=== PATIENT | female | born 1990 | race Caucasian/White ===

== ENCOUNTER 2018-04-09 17:18 | Observation (INO) | payer BC ==
[2018-04-09] MEDS ORDERED: Sodium Chloride 0.9% 10 ML Syringe FLUSH PRN (17:49)
[2018-04-09] MEDS ORDERED: Ondansetron 4 MG/2 ML SDV IVPUSH ONE (17:49)
[2018-04-09] MEDS ORDERED: Morphine 2 MG/ML Syringe IVPUSH ONE (17:49)
--- NOTE | 2018-04-09 17:55 | EDM.PDOC ---
ED HPI GENERAL MEDICAL PROBLEM - General Stated Complaint: PELVIC PAIN Time Seen by Provider: 04/09/18 17:40 Source of Information: Reports: Patient History Limitations: Reports: No Limitations - History of Present Illness INITIAL COMMENTS - FREE TEXT/NARRATIVE: This is a 27yo F here for extreme pelvic pain. Patient states the pain started Saturday night and she did go to work yesterday and it had improved but now has returned. It is a 10/10 sharp stabbing pain. Patient states the last time she had this was 9 years ago. Patient denies any vaginal discharge or bleeding, no blood in BM or diarrhea or constipation and recent BM yesterday. No recent constipation or diarrhea. - Related Data Allergies Allergy/AdvReac Type Severity Reaction Status Date / Time Sulfa Allergy Other Uncoded 04/09/18 17:54 ED ROS GENERAL - Review of Systems Review Of Systems: ROS reveals no pertinent complaints other than HPI. ED EXAM, RENAL/ - Physical Exam Exam: See Below Exam Limited By: No Limitations General Appearance: Alert, WD/WN, Severe Distress Eye Exam: Bilateral Eye: EOMI, PERRL Ears: Normal External Exam Nose: Normal Inspection Throat/Mouth: Normal Inspection Head: Atraumatic, Normocephalic Neck: Normal Inspection Respiratory/Chest: No Respiratory Distress, Lungs Clear, Normal Breath Sounds Cardiovascular: Normal Peripheral Pulses, Regular Rate, Rhythm GI/Abdominal: Normal Bowel Sounds, Soft, Non-Tender (Female) Exam: Deferred, Other (lower abdominal/pelvic tenderness on palpation right sided) Back Exam: Normal Inspection, Full Range of Motion Course - Orders/Labs/Meds Orders: Active Orders 24 hr Category Date Time Status Patient Status [ADT] Routine ADT 04/09/18 19:04 Ordered Vital Signs [RC] Q4H Care 04/09/18 19:04 Ordered Abdomen Pelvis wo Cont [CT] Stat Exams 04/09/18 17:40 Taken Sodium Chloride 0.9% [Normal Saline] 1,000 ml Med 04/09/18 19:00 Active IV ASDIRECTED Sodium Chloride 0.9% [Saline Flush] Med 04/09/18 17:49 Active 10 ml FLUSH ASDIRECTED PRN Peripheral IV Insertion Adult [OM.PC] Routine Oth 04/09/18 17:49 Ordered Medication Orders Sodium Chloride (Normal Saline) 1,000 mls @ 125 mls/hr IV ASDIRECTED CHARI Sodium Chloride (Saline Flush) 10 ml FLUSH ASDIRECTED PRN PRN Reason: Keep Vein Open Last Admin: 04/09/18 17:45 Dose: 10 ml Labs: Laboratory Tests 04/09/18 04/09/18 04/09/18 Range/Units 17:45 17:45 18:10 WBC 12.4 H (4.0-11.0) K/uL RBC 4.50 (3.80-5.80) M/uL Hgb 13.5 (11.5-16.5) g/dL Hct 40.2 (37.0-47.0) % MCV 89 (76-96) fL MCH 30.0 (27.0-32.0) pg MCHC 33.6 (31.0-35.0) g/dL RDW 12.5 (11.0-16.0) % Plt Count 267 (150-500) K/uL MPV 10.0 (6.0-10.0) fL Neut % (Auto) 61.2 (45.0-70.0) % Lymph % (Auto) 30.4 (20.0-40.0) % [place] % (Auto) 7.6 (3.0-10.0) % Eos % (Auto) 0.6 L (1.0-5.0) % Baso % (Auto) 0.2 (0.0-0.5) % Neut # (Auto) 7.61 H (2.00-7.50) K/uL Lymph # (Auto) 3.77 (1.50-4.00) K/uL [place] # (Auto) 0.94 H (0.20-0.80) K/uL Eos # (Auto) 0.07 (0.04-0.40) K/uL Baso # (Auto) 0.02 (0.02-0.10) K/uL Sodium 141 (136-145) mmol/L Potassium 4.7 (3.5-5.1) mmol/L Chloride 104 (98-107) mmol/L Carbon Dioxide 27.5 (21.0-32.0) mmol/L Anion Gap 14.2 (5.0-15.0) mmol/L BUN 23 (8-26) mg/dL Creatinine 0.94 (0.55-1.02) mg/dL Est Cr Clr Drug Dosing TNP Estimated GFR (MDRD) > 60 (>60) MLS/MIN BUN/Creatinine Ratio 24.5 (6-25) Glucose 101 H (74-100) mg/dL Calcium 8.6 (8.5-10.1) mg/dL Total Bilirubin 0.2 (0.0-1.0) mg/dL AST 9 L (15-37) U/L ALT 18 (12-78) U/L Alkaline Phosphatase 67 (46-116) U/L Total Protein 7.8 (6.4-8.2) g/dL Albumin 4.2 (3.4-5.0) g/dL Globulin 3.6 (2.2-4.2) g/dL Albumin/Globulin Ratio 1.2 (0.8-2.0) TSH, Ultra Sensitive 1.343 D (0.358-3.740) uIU/mL Urine Color Urine Appearance (CLEAR) Urine pH (5.0-8.0) Ur Specific [place] (1.003-1.030) Urine Protein (NEGATIVE) mg/dL Urine Glucose (UA) (NEGATIVE) mg/dL Urine Ketones (NEGATIVE) mg/dL Urine Occult Blood (NEGATIVE) Urine Nitrite (NEGATIVE) Urine Bilirubin (NEGATIVE) Urine Urobilinogen (0.2-1.0) E.U./dL Ur Leukocyte Esterase (NEGATIVE) Urine RBC /HPF Urine WBC /HPF Ur Squamous Epith Cells /HPF Urine Bacteria /HPF Urine HCG, Qual Negative (NEGATIVE) 04/09/18 Range/Units 18:10 WBC (4.0-11.0) K/uL RBC (3.80-5.80) M/uL Hgb (11.5-16.5) g/dL Hct (37.0-47.0) % MCV (76-96) fL MCH (27.0-32.0) pg MCHC (31.0-35.0) g/dL RDW (11.0-16.0) % Plt Count (150-500) K/uL MPV (6.0-10.0) fL Neut % (Auto) (45.0-70.0) % Lymph % (Auto) (20.0-40.0) % [place] % (Auto) (3.0-10.0) % Eos % (Auto) (1.0-5.0) % Baso % (Auto) (0.0-0.5) % Neut # (Auto) (2.00-7.50) K/uL Lymph # (Auto) (1.50-4.00) K/uL [place] # (Auto) (0.20-0.80) K/uL Eos # (Auto) (0.04-0.40) K/uL Baso # (Auto) (0.02-0.10) K/uL Sodium (136-145) mmol/L Potassium (3.5-5.1) mmol/L Chloride (98-107) mmol/L Carbon Dioxide (21.0-32.0) mmol/L Anion Gap (5.0-15.0) mmol/L BUN (8-26) mg/dL Creatinine (0.55-1.02) mg/dL Est Cr Clr Drug Dosing Estimated GFR (MDRD) (>60) MLS/MIN BUN/Creatinine Ratio (6-25) Glucose (74-100) mg/dL Calcium (8.5-10.1) mg/dL Total Bilirubin (0.0-1.0) mg/dL AST (15-37) U/L ALT (12-78) U/L Alkaline Phosphatase (46-116) U/L Total Protein (6.4-8.2) g/dL Albumin (3.4-5.0) g/dL Globulin (2.2-4.2) g/dL Albumin/Globulin Ratio (0.8-2.0) TSH, Ultra Sensitive (0.358-3.740) uIU/mL Urine Color Yellow Urine Appearance Clear (CLEAR) Urine pH 6.0 (5.0-8.0) Ur Specific [place] 1.010 (1.003-1.030) Urine Protein Negative (NEGATIVE) mg/dL Urine Glucose (UA) Negative (NEGATIVE) mg/dL Urine Ketones Negative (NEGATIVE) mg/dL Urine Occult Blood Negative (NEGATIVE) Urine Nitrite Negative (NEGATIVE) Urine Bilirubin Negative (NEGATIVE) Urine Urobilinogen 0.2 (0.2-1.0) E.U./dL Ur Leukocyte Esterase Negative (NEGATIVE) Urine RBC Not seen /HPF Urine WBC Not seen /HPF Ur Squamous Epith Cells Moderate /HPF Urine Bacteria Occasional /HPF Urine HCG, Qual (NEGATIVE) Meds: Medications Generic Name Dose Route Start Last Admin Trade Name Olive PRN Reason Stop Dose Admin Sodium Chloride 1,000 mls @ 125 mls/hr 04/09/18 19:00 Normal Saline IV ASDIRECTED CHARI Sodium Chloride 10 ml 04/09/18 17:49 04/09/18 17:45 Saline Flush FLUSH 10 ml ASDIRECTED PRN Administration Keep Vein Open Discontinued Medications Generic Name Dose Route Start Last Admin Trade Name Olive PRN Reason Stop Dose Admin Hydromorphone HCl 2 mg 04/09/18 18:31 04/09/18 18:44 Dilaudid IVPUSH 04/09/18 18:32 2 mg ONETIME ONE Administration Hydromorphone HCl Confirm 04/09/18 18:40 04/09/18 18:51 Dilaudid Administered 04/09/18 18:41 Not Given Dose 2 mg .ROUTE .STK-MED ONE Ketorolac Tromethamine 30 mg 04/09/18 18:34 04/09/18 18:36 Toradol IVPUSH 04/09/18 18:35 30 mg ONETIME ONE Administration Ketorolac Tromethamine Confirm 04/09/18 18:39 04/09/18 18:51 Toradol Administered 04/09/18 18:40 Not Given Dose 30 mg .ROUTE .STK-MED ONE Morphine Sulfate 2 mg 04/09/18 17:49 04/09/18 18:01 Morphine IVPUSH 04/09/18 17:50 2 mg ONETIME ONE Administration Morphine Sulfate Confirm 04/09/18 17:59 04/09/18 18:20 Morphine Administered 04/09/18 18:00 Not Given Dose 2 mg .ROUTE .STK-MED ONE Ondansetron HCl 4 mg 04/09/18 17:49 04/09/18 17:56 Zofran IVPUSH 04/09/18 17:50 4 mg ONETIME ONE Administration Ondansetron HCl Confirm 04/09/18 18:00 04/09/18 18:20 Zofran Administered 04/09/18 18:01 Not Given Dose 4 mg .ROUTE .STK-MED ONE Departure - Departure Time of Disposition: 19:14 Disposition: Refer to Observation Condition: Fair Clinical Impression: Pelvic pain Ovarian cyst Qualifiers: Laterality: right Qualified Code(s): N83.201 - Unspecified ovarian cyst, right side - Discharge Information Referrals: PCP,None [Primary Care Provider] - - Problem List & Annotations (1) Ovarian cyst SNOMED Code(s): 35896606 Code(s): N83.209 - UNSPECIFIED OVARIAN CYST, UNSPECIFIED SIDE Status: Acute Priority: High Current Visit: Yes Qualifiers: Laterality: right Qualified Code(s): N83.201 - Unspecified ovarian cyst, right side (2) Pelvic pain SNOMED Code(s): 19296225 Code(s): R10.2 - PELVIC AND PERINEAL PAIN Status: Acute Priority: High Current Visit: Yes - Problem List Review Problem List Initiated/Reviewed/Updated: Yes - My Orders Last 24 Hours: My Active Orders 04/09/18 17:40 Abdomen Pelvis wo Cont [CT] Stat 04/09/18 17:49 Sodium Chloride 0.9% [Saline Flush] 10 ml FLUSH ASDIRECTED PRN Peripheral IV Insertion Adult [OM.PC] Routine 04/09/18 19:00 Sodium Chloride 0.9% [Normal Saline] 1,000 ml IV ASDIRECTED 04/09/18 19:04 Patient Status [ADT] Routine Vital Signs [RC] Q4H - Assessment/Plan Last 24 Hours: My Active Orders 04/09/18 17:40 Abdomen Pelvis wo Cont [CT] Stat 04/09/18 17:49 Sodium Chloride 0.9% [Saline Flush] 10 ml FLUSH ASDIRECTED PRN Peripheral IV Insertion Adult [OM.PC] Routine 04/09/18 19:00 Sodium Chloride 0.9% [Normal Saline] 1,000 ml IV ASDIRECTED 04/09/18 19:04 Patient Status [ADT] Routine Vital Signs [RC] Q4H Plan: Patient admitted for pain management. Morphine 2mg did not improve the pain at all. Dilaudid 2mg brought the pain down from 10 to 6/10.
[2018-04-09] MEDS ORDERED: Morphine 2 MG/ML Syringe ONE (17:59)
[2018-04-09] MEDS ORDERED: Ondansetron 4 MG/2 ML SDV ONE (18:00)
[2018-04-09] MEDS ORDERED: Ketorolac 30 MG/ML SDV IVPUSH ONE (18:34)
[2018-04-09] MEDS ORDERED: Ketorolac 30 MG/ML SDV ONE (18:39)
[2018-04-09] MEDS ORDERED: HYDROmorphone 2 MG/ML Syringe ONE (18:40)
[2018-04-09] MEDS: HYDROmorphone 2 MG/ML SDV IVPUSH ONE ×2 (18:44→20:03)
[2018-04-09] MEDS: Sodium Chloride 0.9% 1,000 ML IV SCH (19:16)
[2018-04-09] MEDS ORDERED: Ondansetron 4 MG/2 ML SDV IVPUSH PRN (19:16)
[2018-04-09] MEDS ORDERED: Ketorolac 60 MG/2 ML SDV IVPUSH PRN (19:16)
[2018-04-09] MEDS ORDERED: diphenhydrAMINE 25 MG Cap PO PRN (21:10)
[2018-04-09] MEDS ORDERED: HYDROmorphone 2 MG/ML SDV ONE ×2 (21:13→22:30)
[2018-04-09] MEDS: HYDROmorphone 2 MG/ML Syringe IVPUSH PRN ×2 (21:18→22:38)
[2018-04-10] MEDS ORDERED: HYDROmorphone 2 MG/ML SDV ONE ×2 (02:05→05:02)
[2018-04-10] MEDS: HYDROmorphone 2 MG/ML Syringe IVPUSH PRN ×2 (02:08→05:08)
[2018-04-10] MEDS: Sodium Chloride 0.9% 1,000 ML IV SCH (03:14)
[2018-04-10] MEDS ORDERED: Ketorolac 30 MG/ML SDV ONE (07:15)
[2018-04-10] MEDS ORDERED: Ketorolac 30 MG/ML SDV IVPUSH PRN (08:06)
[2018-04-10] MEDS ORDERED: HYDROmorphone 2 MG/ML Syringe IVPUSH PRN (08:38)
--- NOTE | 2018-04-10 10:07 | CT ---
DATE OF SERVICE: 04/09/18 CLINICAL DATA: severe pelvic pain UNENHANCED ABDOMEN AND PELVIC CT: Multislice acquisition through the abdomen and pelvis without IV or oral contrast was performed. No priors. The lung bases are clear. The heart size is normal. The unenhanced liver appears normal. No focal hepatic lesions. The gallbladder is contracted. There are multiple small radiodensities within the gallbladder suspicious for small gallstones. Gallbladder ultrasound is recommended. The spleen appears normal. The pancreas appears normal. The right and left adrenals appear normal. The right and left kidneys appear normal. No nephrocalcinosis or nephrolithiasis. No hydronephrosis or hydroureter. The bladder is fluid-filled. It appears normal. There is a 5.3 cm fluid density lesion in the right ovary consistent with a right ovarian cyst. The patient is status post appendectomy. No free air. No free fluid. No dilated loops of bowel. No adenopathy. No aortic aneurysm. There is a small umbilical hernia containing fat. There is a moderate amount of stool present throughout the colon. IMPRESSION: A 5.4 cm fluid density lesion right ovary consistent with a right ovarian cyst. Followup ultrasound is recommended to confirm resolution. Other findings as discussed above. [id number] [facility]
[2018-04-10] MEDS: traMADol 50 MG Tab PO SCH ×2 (10:20→12:59)
== END 2018-04-10 13:22 | disposition home or self-care (01) ==
LOC: LB.ED 17:18 → UNDOADMOB 19:00 → LB.MS 19:00
PROVIDERS: ADMIT Family Medicine; ATTEND Family Medicine
DX: N83.201 Unspecified ovarian cyst, right side (principal); Z88.2 Allergy status to sulfonamides; K42.9 Umbilical hernia without obstruction or gangrene
CPT/HCPCS: 36415; 74176; 80053; 81001; 81025; 84443; 85025; 96374; 96375; 99285-25; A9270-GY; J1170; J1885; J2270; J2405; J7030; J7050

== ENCOUNTER 2018-08-02 19:02 | Emergency (ER) | payer BC ==
[2018-08-02] MEDS ORDERED: Acetaminophen/oxyCODONE 325-5 MG Tab ONE (19:30)
[2018-08-02] MEDS ORDERED: Phenazopyridine 100 MG Tab ONE (19:30)
--- NOTE | 2018-08-02 19:57 | EDM.PDOC ---
ED HPI GENERAL MEDICAL PROBLEM - General Chief Complaint: Genitourinary Problem Stated Complaint: CAN'T VOID Time Seen by Provider: 08/02/18 19:50 Source of Information: Reports: Patient, Old Records History Limitations: Reports: No Limitations - History of Present Illness INITIAL COMMENTS - FREE TEXT/NARRATIVE: Patient states she felt like she needed to pee at about 1630 today. She went into the bathroom and was unable to void despite trying warm water, etc. Shortly after that she developed left pelvic pain. She presented to the ED in March 2018 for similar episode of pelvic pain; however, this was on her right side with CT identifying an ovarian cyst that was subsequently was surgically removed. She states that she has endometriosis on her left side and is currently on lupron to reduce the inflammation in her pelvis. Because of this medication, she states that she does not get periods. Patient states she has had urinary retention once in the past and did have a brewer catheter placed. Patient denies fever, vomiting, diarrhea, constipation with last BM yesterday. She admits to drinking "a few beers this afternoon" but denies other drug use. Onset: Today, Sudden Duration: Getting Worse Location: Reports: Pelvis Quality: Reports: Burning, Stabbing Severity: Moderate Improves with: Reports: None Worsens with: Reports: None Associated Symptoms: Denies: Chest Pain, Fever/Chills, Loss of Appetite, Nausea/ Vomiting, Shortness of Breath, Weakness - Related Data Allergies Allergy/AdvReac Type Severity Reaction Status Date / Time Sulfa Allergy Other Uncoded 04/09/18 17:54 Home Meds: Home Meds NK [No Known Home Meds] 04/10/18 [History] Past Medical History Cardiovascular History: Reports: None Respiratory History: Reports: None Gastrointestinal History: Reports: None Genitourinary History: Reports: None SHAFT TENDER History: Reports: 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, Other (See Below) Other SHAFT TENDER History: miscarriage Musculoskeletal History: Reports: Fracture, Other (See Below) Other Musculoskeletal History: L foot fx of 8 bones with hardware in 2014 Neurological History: Reports: None Psychiatric History: Reports: None Endocrine/Metabolic History: Reports: None Hematologic History: Reports: None Oncologic (Cancer) History: Reports: None Dermatologic History: Reports: None - Infectious Disease History Infectious Disease History: Reports: Chicken Pox, Mumps - Past Surgical History GI Surgical History: Reports: Appendectomy Musculoskeletal Surgical History: Reports: ORIF Social & Family History - Family History Family Medical History: Noncontributory - Caffeine Use Caffeine Use: Reports: Coffee, Soda ED ROS GENERAL - Review of Systems Review Of Systems: See Below Constitutional: Denies: Fever, Chills HEENT: Reports: No Symptoms Respiratory: Reports: No Symptoms Cardiovascular: Reports: No Symptoms GI/Abdominal: Denies: Abdominal Pain, Anorexia, Constipation, Diarrhea, Decreased Appetite, Nausea : Reports: Incontinence, Pain, Urinary Retention. Denies: Discharge, Dysuria , Flank Pain, Frequency, Urgency Musculoskeletal: Reports: No Symptoms Skin: Reports: No Symptoms Neurological: Reports: No Symptoms ED EXAM, RENAL/ - Physical Exam Exam: See Below Exam Limited By: No Limitations General Appearance: Alert, WD/WN, No Apparent Distress Eye Exam: Bilateral Eye: Normal Inspection, PERRL Ears: Normal External Exam Nose: Normal Inspection, Normal Mucosa Throat/Mouth: Normal Inspection, No Airway Compromise Head: Atraumatic, Normocephalic Neck: Normal Inspection, Supple, Non-Tender, Full Range of Motion Respiratory/Chest: No Respiratory Distress, Lungs Clear, Normal Breath Sounds, No Accessory Muscle Use, Chest Non-Tender Cardiovascular: Normal Peripheral Pulses, Regular Rate, Rhythm GI/Abdominal: Normal Bowel Sounds, Soft, Non-Tender, No Organomegaly, Pelvis Stable Extremities: Normal Inspection, Normal Range of Motion Neurological: Alert, Oriented Psychiatric: Anxious, Tearful Skin Exam: Warm, Dry, Intact Course - Vital Signs Last Recorded V/S: Last Vital Signs Temp 36.5 C 08/02/18 19:52 Pulse 78 08/02/18 21:05 Resp 18 08/02/18 21:05 BP 103/62 08/02/18 21:05 Pulse Ox 100 08/02/18 21:05 - Orders/Labs/Meds Orders: Active Orders 24 hr Category Date Time Status Insert Brewer Catheter [Insert Urinary Catheter] [OM.PC] Care 08/02/18 19:35 Ordered Q24H POC Testing [POC Labs] [RC] ASDIRECTED Care 08/02/18 20:01 Inactive Urinary Catheter Assessment [RC] ASDIRECTED Care 08/02/18 19:35 Active Abdomen Pelvis w Cont [CT] Stat Exams 08/02/18 20:04 Ordered Phenazopyridine [Pyridium] Med 08/02/18 20:59 Ordered 100 mg PO BID PRN Sodium Chloride 0.9% [Saline Flush] Med 08/02/18 20:00 Active 10 ml FLUSH ASDIRECTED PRN Saline Lock Insert [OM.PC] Routine Oth 08/02/18 20:00 Ordered Medication Orders Phenazopyridine HCl (Pyridium) 100 mg PO BID PRN PRN Reason: Pain Last Admin: 08/02/18 21:01 Dose: 100 mg Sodium Chloride (Saline Flush) 10 ml FLUSH ASDIRECTED PRN PRN Reason: Keep Vein Open Labs: Laboratory Tests 08/02/18 08/02/18 08/02/18 Range/Units 20:01 20:34 20:35 WBC 7.8 D (4.0-11.0) K/uL RBC 5.10 (3.80-5.80) M/uL Hgb 15.1 (11.5-16.5) g/dL Hct 44.8 (37.0-47.0) % MCV 88 (76-96) fL MCH 29.6 (27.0-32.0) pg MCHC 33.7 (31.0-35.0) g/dL RDW 12.7 (11.0-16.0) % Plt Count 298 (150-500) K/uL MPV 10.2 H (6.0-10.0) fL Neut % (Auto) 54.8 (45.0-70.0) % Lymph % (Auto) 38.6 (20.0-40.0) % [place] % (Auto) 5.2 (3.0-10.0) % Eos % (Auto) 1.0 (1.0-5.0) % Baso % (Auto) 0.4 (0.0-0.5) % Neut # (Auto) 4.29 (2.00-7.50) K/uL Lymph # (Auto) 3.03 (1.50-4.00) K/uL [place] # (Auto) 0.41 (0.20-0.80) K/uL Eos # (Auto) 0.08 (0.04-0.40) K/uL Baso # (Auto) 0.03 (0.02-0.10) K/uL Sodium (136-145) mmol/L Potassium (3.5-5.1) mmol/L Chloride (98-107) mmol/L Carbon Dioxide (21.0-32.0) mmol/L Anion Gap (5.0-15.0) mmol/L BUN (8-26) mg/dL Creatinine (0.55-1.02) mg/dL Est Cr Clr Drug Dosing Estimated GFR (MDRD) (>60) MLS/MIN BUN/Creatinine Ratio (6-25) Glucose (74-100) mg/dL Calcium (8.5-10.1) mg/dL Urine Color Yellow Urine Appearance Clear (CLEAR) Urine pH 5.5 (5.0-8.0) Ur Specific [place] <= 1.005 (1.003-1.030) Urine Protein Negative (NEGATIVE) mg/dL Urine Glucose (UA) Negative (NEGATIVE) mg/dL Urine Ketones Negative (NEGATIVE) mg/dL Urine Occult Blood Negative (NEGATIVE) Urine Nitrite Negative (NEGATIVE) Urine Bilirubin Negative (NEGATIVE) Urine Urobilinogen 0.2 (0.2-1.0) E.U./dL Ur Leukocyte Esterase Negative (NEGATIVE) Urine HCG, Qual Negative (NEGATIVE) 08/02/18 Range/Units 20:35 WBC (4.0-11.0) K/uL RBC (3.80-5.80) M/uL Hgb (11.5-16.5) g/dL Hct (37.0-47.0) % MCV (76-96) fL MCH (27.0-32.0) pg MCHC (31.0-35.0) g/dL RDW (11.0-16.0) % Plt Count (150-500) K/uL MPV (6.0-10.0) fL Neut % (Auto) (45.0-70.0) % Lymph % (Auto) (20.0-40.0) % [place] % (Auto) (3.0-10.0) % Eos % (Auto) (1.0-5.0) % Baso % (Auto) (0.0-0.5) % Neut # (Auto) (2.00-7.50) K/uL Lymph # (Auto) (1.50-4.00) K/uL [place] # (Auto) (0.20-0.80) K/uL Eos # (Auto) (0.04-0.40) K/uL Baso # (Auto) (0.02-0.10) K/uL Sodium 146 H (136-145) mmol/L Potassium 4.2 (3.5-5.1) mmol/L Chloride 106 (98-107) mmol/L Carbon Dioxide 28.0 (21.0-32.0) mmol/L Anion Gap 16.2 H (5.0-15.0) mmol/L BUN 11 D (8-26) mg/dL Creatinine 0.84 (0.55-1.02) mg/dL Est Cr Clr Drug Dosing TNP Estimated GFR (MDRD) > 60 (>60) MLS/MIN BUN/Creatinine Ratio 13.1 (6-25) Glucose 97 (74-100) mg/dL Calcium 9.4 (8.5-10.1) mg/dL Urine Color Urine Appearance (CLEAR) Urine pH (5.0-8.0) Ur Specific [place] (1.003-1.030) Urine Protein (NEGATIVE) mg/dL Urine Glucose (UA) (NEGATIVE) mg/dL Urine Ketones (NEGATIVE) mg/dL Urine Occult Blood (NEGATIVE) Urine Nitrite (NEGATIVE) Urine Bilirubin (NEGATIVE) Urine Urobilinogen (0.2-1.0) E.U./dL Ur Leukocyte Esterase (NEGATIVE) Urine HCG, Qual (NEGATIVE) Meds: Medications Generic Name Dose Route Start Last Admin Trade Name Freq PRN Reason Stop Dose Admin Phenazopyridine HCl 100 mg 08/02/18 20:59 08/02/18 21:01 Pyridium PO 100 mg BID PRN Administration Pain Sodium Chloride 10 ml 08/02/18 20:00 Saline Flush FLUSH ASDIRECTED PRN Keep Vein Open Discontinued Medications Generic Name Dose Route Start Last Admin Trade Name Freq PRN Reason Stop Dose Admin Morphine Sulfate 4 mg 08/02/18 20:15 08/02/18 20:22 Morphine IV 08/02/18 20:16 4 mg ONETIME ONE Administration Morphine Sulfate 4 mg 08/02/18 21:28 08/02/18 21:29 Morphine IVPUSH 08/02/18 21:29 4 mg ONETIME ONE Administration Phenazopyridine HCl Confirm 08/02/18 21:00 08/02/18 21:32 Pyridium Administered 08/02/18 21:01 Not Given Dose 100 mg .ROUTE .[facility] ONE - Re-Assessments/Exams Free Text/Narrative Re-Assessment/Exam: This patient presents for evaluation of left pelvic pain and decreased urinary output. I considered a broad differential including diverticulitis, aneurysm, urinary retention, ureterolithiasis, UTI, pyelonephritis, (MS, cauda equina,etc) , colitis, etc. The history and exam are consistent with acute urinary retention and this is confirmed after brewer catheter placement with 2000 mL urine drained. A urinalysis was obtained and was negative. An abdominal CT was negative for acute findings. I am suspicious that this patient's significant bladder distention caused her left pelvic pain as she was notably more comfortable after her bladder was drained. I prepared her for discharge with catheter and have patient followup with in 3-5 days; however, the patient refused. I discussed the likelihood of needing to return for recurrent urinary retention and patient is willing to return as needed. I did give her a prescription for pyridium and one for percocet to be used as needed for severe pain. The cause of the acute urinary retention is unclear at this point and considered that this may be caused by opiate medication, other medications, constipation, bladder or urethral tumor, ureterolithaisis, etc. Medications for discharge noted above. Patient is stable for discharge home. 08/02/18 22:18 Departure - Departure Time of Disposition: 22:30 Disposition: Home, Self-Care 01 Condition: Good Clinical Impression: Retention of urine, Pelvic pain - Discharge Information *PRESCRIPTION DRUG MONITORING PROGRAM REVIEWED*: No *COPY OF PRESCRIPTION DRUG MONITORING REPORT IN PATIENT NAKIA: No Instructions: Pelvic Pain, Female, [id number], Acute Urinary Retention, Female Referrals: PCP,None [Primary Care Provider] - Forms: ED Department Discharge - My Orders Last 24 Hours: My Active Orders 08/02/18 19:35 Insert Brewer Catheter [Insert Urinary Catheter] [OM.PC] Q24H Urinary Catheter Assessment [RC] ASDIRECTED 08/02/18 20:00 Sodium Chloride 0.9% [Saline Flush] 10 ml FLUSH ASDIRECTED PRN Saline Lock Insert [OM.PC] Routine 08/02/18 20:01 POC Testing [POC Labs] [RC] ASDIRECTED 08/02/18 20:04 Abdomen Pelvis w Cont [CT] Stat 08/02/18 20:59 Phenazopyridine [Pyridium] 100 mg PO BID PRN - Assessment/Plan Last 24 Hours: My Active Orders 08/02/18 19:35 Insert Brewer Catheter [Insert Urinary Catheter] [OM.PC] Q24H Urinary Catheter Assessment [RC] ASDIRECTED 08/02/18 20:00 Sodium Chloride 0.9% [Saline Flush] 10 ml FLUSH ASDIRECTED PRN Saline Lock Insert [OM.PC] Routine 08/02/18 20:01 POC Testing [POC Labs] [RC] ASDIRECTED 08/02/18 20:04 Abdomen Pelvis w Cont [CT] Stat 08/02/18 20:59 Phenazopyridine [Pyridium] 100 mg PO BID PRN
[2018-08-02] MEDS ORDERED: Sodium Chloride 0.9% 10 ML Syringe FLUSH PRN (20:00)
[2018-08-02] MEDS: Morphine 10 MG/ML SDV IV ONE (20:22)
[2018-08-02] MEDS: Phenazopyridine 100 MG Tab PO PRN (21:01)
[2018-08-02] MEDS: Morphine 2 MG/ML Syringe IVPUSH ONE (21:29)
[2018-08-02] MEDS: Phenazopyridine 100 MG Tab ONE (21:32)
--- NOTE | 2018-08-04 10:38 | CT ---
ENHANCED ABDOMEN AND PELVIC CT, 08/02/18 Multislice acquisition through the abdomen and pelvis with IV combo without oral contrast was performed. No priors. The lung bases are clear. The liver is normal size with homogeneous attenuation. No focal hepatic lesions. The gallbladder appears normal. No biliary duct dilatation. The spleen appears normal. 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 The pancreas appears normal. The right and left adrenals appear normal. The right and left kidneys appear normal and enhance symmetrically. No hydronephrosis or hydroureter There is a Terrazas catheter within the bladder. The bladder is largely decompressed. There is some gas noted within it mostly likely due to the Terrazas catheter. There are surgical changes adjacent to the cecum probably related to prior appendectomy. The appendix is not visualized. There is a moderate amount of stool present throughout the colon and rectum. No free air. No free fluid. No dilated loops of bowel. No adenopathy. No aortic aneurysm or dissection. There is an umbilical hernia containing fat. No other significant findings. IMPRESSION: No acute abnormalities. Other findings as discussed above. [id number] [facility]
== END 2018-08-02 22:34 | disposition home or self-care (01) ==
LOC: LB.ED 19:02
DX: R33.9 Retention of urine, unspecified (principal); R10.2 Pelvic and perineal pain; Z88.2 Allergy status to sulfonamides
CPT/HCPCS: 36415; 74177; 80048; 81003; 81025; 85025; 96374; 96376; 99284-25; A9270-GY; J2270

== ENCOUNTER 2019-01-24 01:41 | Emergency (ER) | payer BC ==
[2019-01-24] MEDS ORDERED: Ketorolac 60 MG/2 ML SDV ONE (02:20)
[2019-01-24] MEDS ORDERED: Ketorolac 60 MG/2 ML SDV IM ONE (02:25)
[2019-01-24] MEDS ORDERED: traMADol 50 MG Tab ONE (03:00)
--- NOTE | 2019-01-26 07:36 | ER ---
DATE OF SERVICE: 01/24/2019 REASON FOR EMERGENCY ROOM VISIT: Vaginal pain. HISTORY: This 28-year-old woman with a history of endometriosis comes in after experiencing severe burning in her vaginal area following intercourse this evening. She states that she and her had normal intercourse that was not excessively violent. No foreign bodies were inserted into the vagina, and there was nothing out of the ordinary about their intercourse. However, afterwards, she experienced this burning, that seemed to intensify. She immediately sought relief by placing an ice pack in between her vulva areas. She did not have any unusual pelvic pain immediately prior to this, nor did she have any irritative voiding symptoms. She states that she had a similar episode of pain that came on spontaneously that did not occur after intercourse. This happened 2 weeks ago and lasted throughout the night and resolved on its own. She has not had any fever or chills. She has not had any GI symptoms with this. PAST MEDICAL HISTORY: She does have a history of a number of problems related to endometriosis and other pelvic pathology. She states that she has had endometriosis symptoms since she was in high school. She underwent a laparoscopic appendectomy in 2007. She has undergone two previous laparoscopic procedures for endometriosis and what sounds like ablation or cauterization 5 years ago and 3 years ago. In addition to this, in July of this year, she was seen here for acute urinary retention, and in review of her records, I cannot identify a cause of that at the time; however, she did have an indwelling Terrazas catheter for 5 days, and after the catheter was removed, her symptoms have not recurred. She states that she did not have UTI at that time. It should also be mentioned that she underwent a laparoscopic removal of ovarian cyst and that was in April of 2018. She was given 1 injection of Lupron for treatment of endometriosis subsequent to that operation. She also admits that she has a history of bladder infections in the past, but she denies any recent dysuria or cloudy urine, etc. Her last normal menstrual period was 3 weeks ago. MEDICATIONS: None. ALLERGIES: TO SULFA. FAMILY HISTORY: Mother and father are alive and well, as are her brother and sister. PAST SURGICAL HISTORY: 1. Miscarriage x1. 2. Laparoscopic appendectomy in 2007. 3. Laparoscopy for endometriosis in 2013 and 2015. 4. Acute urinary retention in July of 2018. REVIEW OF SYSTEMS: All pertinent positives and negatives as listed in HPI. PHYSICAL EXAMINATION: VITAL SIGNS: She is afebrile. ABDOMEN: Soft. : On examination of her perineum, her vulva looks slightly reddened. Her vaginal mucosa on the mucosal side of her labia minora is slightly reddened, but no abrasions, no petechiae, no vesicles, etc. I did this examination after applying some viscous lidocaine. A vaginal speculum was inserted. The vaginal mucosa appeared normal as did the cervix. There are no vesicles. No sign of trauma. There is no sign of foreign body. There was no blood. There was no vaginal discharge. LABORATORY DATA: Urinalysis was done, and this was negative. IMPRESSION: Dyspareunia - I think this could be related to her endometriosis. She does note that, after my speculum examination, she is beginning to experience some itching, and on my exam, I could not see anything as a potential cause for any pruritus. EMERGENCY ROOM COURSE: She was given Toradol 60 mg IM. She seemed to settle down over the course of the hour after that. A long discussion was undertaken regarding some measures that she can take to alleviate her symptoms. I recommended that she try bathing in Epsom salts, she can try ice packs or warm soaks to see if that offers her any relief, either one is fine. I recommended abstinence for a while until the things settle down. She was given tramadol 50 mg, dispensed #6 tablets 1 every 6 hours p.r.n. pain. 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 She understands. All questions were answered. She agrees with this. ION /[id number]
== END 2019-01-24 03:04 | disposition home or self-care (01) ==
LOC: LB.ED 01:41
DX: N94.10 Unspecified dyspareunia (principal); Z90.49 Acquired absence of other specified parts of digestive tract; Z88.2 Allergy status to sulfonamides
CPT/HCPCS: 81001; 96372; 99283; A9270; J1885

== ENCOUNTER 2019-05-31 07:52 | Emergency (ER) | payer BC ==
[2019-05-31] MEDS ORDERED: Phenazopyridine 100 MG Tab ONE (08:30)
[2019-05-31] MEDS ORDERED: Fluconazole 150 MG Tab ONE ×2 (08:30→08:58)
[2019-05-31] MEDS ORDERED: Ciprofloxacin 500 MG Tab ONE (08:30)
--- NOTE | 2019-05-31 11:36 | ER ---
REASON FOR EMERGENCY ROOM VISIT: Possible UTI. HISTORY: This 28-year-old woman comes in with a 3-day history of increasing dysuria, urinary frequency, and a sense of incomplete bladder emptying. She does have a history of UTIs on several occasions in the past, but none for approximately 5 or 6 years. She has started taking Pyridium at home, but then realized it was . She has not had any back pain, fever, or chills. She denies any nausea, vomiting, or diarrhea. PAST MEDICAL HISTORY: 1. 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. 2. Ovarian cyst. MEDICATIONS: None. ALLERGIES: TO SULFA. REVIEW OF SYSTEMS: Pertinent positives and negatives as listed in the HPI. PHYSICAL EXAMINATION: GENERAL: She seems to be uncomfortable. VITAL SIGNS: She is afebrile, pulse of 104, blood pressure 132/76, respiratory rate 16, O2 sats 99% on room air. ABDOMEN: Soft, nontender, nondistended. No organomegaly. No palpable masses. There is no CVA tenderness. LABORATORY DATA: Her urinalysis is suggestive of a UTI with positive for leukocyte esterase, 75-100 wbc's per high-power field and urinary bacteria is present. IMPRESSION: Lower urinary tract infection (cystitis). PLAN: I was going to give her Macrobid to treat this, but we do not have it in the pharmacy and the pharmacy is not open in town today. We will give her ciprofloxacin and I will place her on that 500 mg p.o. b.i.d. x3 days. She was encouraged to take a lot of clear liquids. She did request a prescription for Diflucan because she states that every single time she has ever had a treatment for UTI. She has a bladder infection requiring Diflucan, so I went ahead and gave her two 150 mg tablets for that and instructed her on its use. I also gave her some Pyridium to be used for symptomatic relief as well. She understands and agrees with this plan. If her symptoms are still present by the middle of next week, she should return and have her urine checked again. She agrees. All questions were answered. ION /[id number]
== END 2019-05-31 09:04 | disposition home or self-care (01) ==
LOC: LB.ED 07:52
DX: N30.90 Cystitis, unspecified without hematuria (principal)
CPT/HCPCS: 81001; 99283; A9270

== ENCOUNTER 2019-09-03 01:19 | Emergency (ER) | payer BC ==
[2019-09-03] MEDS ORDERED: traMADol 50 MG Tab ONE (01:30)
[2019-09-03] MEDS ORDERED: traMADol 50 MG Tab PO ONE (01:58)
[2019-09-03] MEDS ORDERED: Diazepam 5 MG Tab PO ONE (01:58)
[2019-09-03] MEDS ORDERED: Ibuprofen 800 MG Tab PO ONE (02:00)
--- NOTE | 2019-09-03 02:24 | EDM.PDOC ---
ED HPI GENERAL MEDICAL PROBLEM - General Chief Complaint: Neck Problem Stated Complaint: neck pain Time Seen by Provider: 09/03/19 01:30 Source of Information: Reports: Patient History Limitations: Reports: No Limitations - History of Present Illness INITIAL COMMENTS - FREE TEXT/NARRATIVE: Radha was in her state of usual health on Saturday until she had the gradual onset of increasing bilateral neck ache. This was localized to her SCM only, R> L. No headache or associated sx's. Recalls being treated for a positive strep under similar circumstances 7 years ago. No injury. No rash, nausea, or photophobia. Active rom of neck remains full, and not exacerbated by neck flexion. Tried ibuprofen and heat. Severe enough to interfere with sleep. 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, Other (See Below) Other [employer] TE[employer]ER History: miscarriage Musculoskeletal History: Reports: Fracture, Other (See Below) Other Musculoskeletal History: L foot fx of 8 bones with hardware in 2014 Neurological History: Reports: None Psychiatric History: Reports: None Endocrine/Metabolic History: Reports: None Hematologic History: Reports: None Oncologic (Cancer) History: Reports: None Dermatologic History: Reports: None - Infectious Disease History Infectious Disease History: Reports: Chicken Pox, Mumps - Past Surgical History GI Surgical History: Reports: Appendectomy Musculoskeletal Surgical History: Reports: ORIF Social & Family History - Family History Family Medical History: Noncontributory - Caffeine Use Caffeine Use: Reports: Coffee, Soda ED ROS GENERAL - Review of Systems Review Of Systems: Comprehensive ROS is negative, except as noted in HPI. ED EXAM, UPPER BACK/NECK PAIN - Physical Exam Exam: See Below Exam Limited By: No Limitations General Appearance: Alert, WD/WN, No Apparent Distress Eye Exam: Bilateral Eye: EOMI, Normal Inspection Ears Exam: Normal External Exam Nose Exam: Normal Inspection, Normal Mucousa Throat/Mouth Exam: Normal Inspection, Normal Lips Head Exam: Atraumatic, Normocephalic Neck Exam: Non-Tender, Full Range of Motion, Normal Alignment, Normal Inspection , Muscle Spasm (over R > L SCM). No: Paraspinous Muscle Tender, Spinous Processes Tender, Stiff Neck, Tender Midline Nexus Criteria: No: Evidence of Intoxication Cardiovascular/Respiratory: Regular Rate, Rhythm, Normal Breath Sounds, No Respiratory Distress. No: Gallop, Murmur, Rales, Rhonchi Back Exam: Normal Inspection. No: Paraspinal Tenderness, Vertebral Tenderness Extremities: Normal Inspection, Normal Range of Motion, Normal Capillary Refill Neurologic: diversity manager II-XII nml As Tested, No Motor/Sensory Deficits, Alert, Oriented x 3 Psychiatric: Anxious Skin Exam: Normal Color, Warm/Dry Lymphatic: No Adenopathy Course - Orders/Labs/Meds Meds: Medications Discontinued Medications Generic Name Dose Route Start Last Admin Trade Name Freq PRN Reason Stop Dose Admin Diazepam 10 mg 09/03/19 01:58 09/03/19 02:12 Valium. PO 09/03/19 01:59 10 mg ONETIME ONE Administration Ibuprofen 800 mg 09/03/19 02:00 09/03/19 02:13 Motrin PO 09/03/19 02:01 800 mg ONETIME ONE Administration Tramadol HCl 100 mg 09/03/19 01:58 09/03/19 02:13 Ultram PO 09/03/19 01:59 100 mg ONETIME ONE Administration Departure - Departure Time of Disposition: 02:15 Disposition: Home, Self-Care 01 Clinical Impression: Torticollis - Discharge Information Instructions: Acute Torticollis, Adult Forms: ED Department Discharge
== END 2019-09-03 02:26 | disposition home or self-care (01) ==
LOC: LB.ED 01:19
DX: M43.6 Torticollis (principal); Z88.2 Allergy status to sulfonamides
CPT/HCPCS: 87430; 99283; A9270-GY

== ENCOUNTER 2020-04-08 17:53 | Emergency (ER) | payer BC ==
[2020-04-08] MEDS ORDERED: Diphtheria,Pertussis(Acell),Tetanus Vaccine 0.5 ML SDV IM ONE (18:37)
--- NOTE | 2020-04-10 13:41 | ER ---
REASON FOR EMERGENCY ROOM VISIT: Right thumb laceration. 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 This was somewhat tangential type laceration. She held pressure on it and came to the emergency room to have this evaluated and treated. She states it was a clean kitchen knife. She believes that her last tetanus booster was over 10 years ago. PAST MEDICAL HISTORY: Reviewed. REVIEW OF SYSTEMS: All pertinent positives and negatives as listed in the HPI. Review of systems otherwise negative. MEDICATIONS: None. ALLERGIES: SULFA. PHYSICAL EXAMINATION: Examination of her right thumb reveals a 6-7 mm tangential, clean laceration at the very tip of her right thumb. It does go into the subcutaneous tissue for a very short distance. There is a minimal amount of oozing present. There is a flap as a result of this type of laceration, but it all looks perfectly viable. This is a curvilinear type laceration. IMPRESSION: Right thumb laceration. PLAN: I discussed the options of treating with Dermabond versus sutures and the pros, cons, and risks and alternatives of both approaches. She elected to have this treated with the Dermabond, which I think is a perfectly reasonable alternative. She had the thumb cleaned with saline and Hibiclens soap. The skin edges were easily approximated and Dermabond was used to affect a good approximation of the skin edges. Once this was done and the Dermabond had dried, I applied an occlusive layer of Steri-Strips over this and secured these in place with tincture of benzoin. I instructed her to leave these Steri-Strips in place and to simply allow them to peel off on their own over the next few days. She should keep this clean and dry for the next 2 days and if necessary wear a glove. She thinks she can accomplish this quite easily. In addition, she was given a Tdap booster, which she agrees was probably indicated. All questions were answered. ION /[id number]
== END 2020-04-08 18:30 | disposition home or self-care (01) ==
LOC: LB.ED 17:53
DX: S61.011A Laceration without foreign body of right thumb without damage to nail, initial encounter (principal); Z23 Encounter for immunization; W26.0XXA Contact with knife, initial encounter; Y92.69 Other specified industrial and construction area as the place of occurrence of the external cause; Y99.0 Civilian activity done for income or pay
CPT/HCPCS: 12001; 90471; 90715; 99282-25

== ENCOUNTER 2021-01-26 10:57 | Emergency (ER) | payer BC ==
[2021-01-26] MEDS: LORazepam 2 MG/ML SDV IM ONE (11:51)
[2021-01-26] MEDS: Nicotine 21 MG/24 Hr Patch TRDERM ONE (13:02)
--- NOTE | 2021-01-26 14:47 | EDM.PDOCBH ---
ED HPI GENERAL MEDICAL PROBLEM - General Chief Complaint: Behavioral/Psych Stated Complaint: Suicidal ideation. Time Seen by Provider: 01/26/21 11:00 Source of Information: Reports: RN History Limitations: Reports: Altered Mental Status - History of Present Illness INITIAL COMMENTS - FREE TEXT/NARRATIVE: Pt is brought to the ER from the clinic stating she wants to . She does not want to live any longer. She is crying and very anxious. 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, Other (See Below) Other QM NURSE History: miscarriage Musculoskeletal History: Reports: Fracture, Other (See Below) Other Musculoskeletal History: L foot fx of 8 bones with hardware in 2014 Neurological History: Reports: None Psychiatric History: Reports: Anxiety, Depression, Suicidal Ideation Endocrine/Metabolic History: Reports: None Hematologic History: Reports: None Oncologic (Cancer) History: Reports: None Dermatologic History: Reports: None - Infectious Disease History Infectious Disease History: Reports: Chicken Pox, Mumps - Past Surgical History GI Surgical History: Reports: Appendectomy Female Surgical History: Reports: Cystectomy, Other (See Below) Other Female Surgeries/Procedures: surgery for endometriosos; cyst removal from R ovary Musculoskeletal Surgical History: Reports: ORIF Social & Family History - Family History Family Medical History: No Pertinent Family History - Tobacco Use Tobacco Use Status *Q: Current Every Day Tobacco User Years of Tobacco use: 8 Packs/Tins Daily: 1 - Caffeine Use Caffeine Use: Reports: None ED ROS GENERAL - Review of Systems Review Of Systems: Comprehensive ROS is negative, except as noted in HPI. Psychiatric: Reports: Agitation, Anxiety, Suicidal Ideation ED EXAM, BEHAVIORAL HEALTH - Physical Exam Exam: See Below Psychiatric: Tearful, Agitated, Suicidal Thoughts, Other (She keeps saying she wants to go see her kids.) COURSE, BEHAVIORAL HEALTH COMP - Course Vital Signs: Last Vital Signs Temp 97.7 F 01/26/21 13:56 Pulse 102 H 01/26/21 13:56 Resp 16 01/26/21 13:56 BP 118/72 01/26/21 13:56 Pulse Ox 97 01/26/21 13:56 Orders, Labs, Meds: Laboratory Tests 01/26/21 01/26/21 01/26/21 Range/Units 11:50 11:50 12:00 WBC 8.3 (4.0-11.0) K/uL RBC 4.38 (3.80-5.80) M/uL Hgb 13.5 (11.5-16.5) g/dL Hct 40.6 (37.0-47.0) % MCV 93 (76-96) fL MCH 30.8 (27.0-32.0) pg MCHC 33.3 (31.0-35.0) g/dL RDW 13.8 (11.0-16.0) % Plt Count 303 (150-500) K/uL MPV 9.9 (6.0-10.0) fL Neut % (Auto) 43.7 L (45.0-70.0) % Lymph % (Auto) 45.6 H (20.0-40.0) % [place] % (Auto) 8.7 (3.0-10.0) % Eos % (Auto) 1.6 (1.0-5.0) % Baso % (Auto) 0.4 (0.0-0.5) % Neut # (Auto) 3.64 (2.00-7.50) K/uL Lymph # (Auto) 3.79 (1.50-4.00) K/uL [place] # (Auto) 0.72 (0.20-0.80) K/uL Eos # (Auto) 0.13 (0.04-0.40) K/uL Baso # (Auto) 0.03 (0.02-0.10) K/uL Sodium (136-145) mmol/L Potassium (3.5-5.1) mmol/L Chloride (98-107) mmol/L Carbon Dioxide (21.0-32.0) mmol/L Anion Gap (5.0-15.0) mmol/L BUN (8-26) mg/dL Creatinine (0.55-1.02) mg/dL Est Cr Clr Drug Dosing Estimated GFR (MDRD) (>60) MLS/MIN BUN/Creatinine Ratio (6-25) Glucose (74-100) mg/dL Calcium (8.5-10.1) mg/dL Total Bilirubin (0.0-1.0) mg/dL AST (15-37) U/L ALT (12-78) U/L Alkaline Phosphatase (46-116) U/L Total Protein (6.4-8.2) g/dL Albumin (3.4-5.0) g/dL Globulin (2.2-4.2) g/dL Albumin/Globulin Ratio (0.8-2.0) TSH, Ultra Sensitive (0.358-3.740) uIU/mL Urine Color Yellow Urine Appearance Clear (CLEAR) Urine pH 7.0 (5.0-8.0) Ur Specific [place] 1.025 (1.003-1.030) Urine Protein Negative (NEGATIVE) mg/dL Urine Glucose (UA) Negative (NEGATIVE) mg/dL Urine Ketones Negative (NEGATIVE) mg/dL Urine Occult Blood Negative (NEGATIVE) Urine Nitrite Negative (NEGATIVE) Urine Bilirubin Negative (NEGATIVE) Urine Urobilinogen 0.2 (0.2-1.0) E.U./dL Ur Leukocyte Esterase Negative (NEGATIVE) Ur Epithelial Cells Moderate /HPF Urine Bacteria Few /HPF Urine Opiates Screen Negative (NEGATIVE) Ur Oxycodone Screen Negative (NEGATIVE) Urine Methadone Screen Negative (NEGATIVE) Ur Barbiturates Screen Negative (NEGATIVE) Ur Tricyclics Screen Negative (NEGATIVE) Ur Phencyclidine Scrn Negative (NEGATIVE) Ur Amphetamine Screen Negative (NEGATIVE) U Methamphetamines Scrn Negative (NEGATIVE) Urine MDMA Screen Negative (NEGATIVE) U Benzodiazepines Scrn Negative (NEGATIVE) U Cocaine Metab Screen Negative (NEGATIVE) U Marijuana (THC) Screen Negative (NEGATIVE) Ethyl Alcohol (<3.0) mg/dL SARS-CoV-2 RNA (PAT) (NEGATIVE) 01/26/21 01/26/21 01/26/21 Range/Units 12:00 12:00 12:56 WBC (4.0-11.0) K/uL RBC (3.80-5.80) M/uL Hgb (11.5-16.5) g/dL Hct (37.0-47.0) % MCV (76-96) fL MCH (27.0-32.0) pg MCHC (31.0-35.0) g/dL RDW (11.0-16.0) % Plt Count (150-500) K/uL MPV (6.0-10.0) fL Neut % (Auto) (45.0-70.0) % Lymph % (Auto) (20.0-40.0) % [place] % (Auto) (3.0-10.0) % Eos % (Auto) (1.0-5.0) % Baso % (Auto) (0.0-0.5) % Neut # (Auto) (2.00-7.50) K/uL Lymph # (Auto) (1.50-4.00) K/uL [place] # (Auto) (0.20-0.80) K/uL Eos # (Auto) (0.04-0.40) K/uL Baso # (Auto) (0.02-0.10) K/uL Sodium 143 (136-145) mmol/L Potassium 4.0 (3.5-5.1) mmol/L Chloride 106 (98-107) mmol/L Carbon Dioxide 25.3 (21.0-32.0) mmol/L Anion Gap 15.7 H (5.0-15.0) mmol/L BUN 12 (8-26) mg/dL Creatinine 0.88 (0.55-1.02) mg/dL Est Cr Clr Drug Dosing TNP Estimated GFR (MDRD) > 60 (>60) MLS/MIN BUN/Creatinine Ratio 13.6 (6-25) Glucose 99 (74-100) mg/dL Calcium 8.4 L (8.5-10.1) mg/dL Total Bilirubin 0.2 (0.0-1.0) mg/dL AST 5 L (15-37) U/L ALT 18 (12-78) U/L Alkaline Phosphatase 84 (46-116) U/L Total Protein 7.8 (6.4-8.2) g/dL Albumin 4.0 (3.4-5.0) g/dL Globulin 3.8 (2.2-4.2) g/dL Albumin/Globulin Ratio 1.1 (0.8-2.0) TSH, Ultra Sensitive 0.815 D (0.358-3.740) uIU/mL Urine Color Urine Appearance (CLEAR) Urine pH (5.0-8.0) Ur Specific [place] (1.003-1.030) Urine Protein (NEGATIVE) mg/dL Urine Glucose (UA) (NEGATIVE) mg/dL Urine Ketones (NEGATIVE) mg/dL Urine Occult Blood (NEGATIVE) Urine Nitrite (NEGATIVE) Urine Bilirubin (NEGATIVE) Urine Urobilinogen (0.2-1.0) E.U./dL Ur Leukocyte Esterase (NEGATIVE) Ur Epithelial Cells /HPF Urine Bacteria /HPF Urine Opiates Screen (NEGATIVE) Ur Oxycodone Screen (NEGATIVE) Urine Methadone Screen (NEGATIVE) Ur Barbiturates Screen (NEGATIVE) Ur Tricyclics Screen (NEGATIVE) Ur Phencyclidine Scrn (NEGATIVE) Ur Amphetamine Screen (NEGATIVE) U Methamphetamines Scrn (NEGATIVE) Urine MDMA Screen (NEGATIVE) U Benzodiazepines Scrn (NEGATIVE) U Cocaine Metab Screen (NEGATIVE) U Marijuana (THC) Screen (NEGATIVE) Ethyl Alcohol 123.0 H (<3.0) mg/dL SARS-CoV-2 RNA (PAT) Negative (NEGATIVE) Medications Discontinued Medications Generic Name Dose Route Start Last Admin Trade Name Olive PRN Reason Stop Dose Admin Lorazepam 2 mg 01/26/21 11:07 01/26/21 11:51 Lorazepam 2 Mg/Ml Sdv IM 01/26/21 11:08 2 mg ONETIME ONE Administration Nicotine 21 mg 01/26/21 12:43 01/26/21 13:02 Nicotine 21 Mg/24 Hr Patch TRDERM 01/26/21 12:44 21 mg ONETIME ONE Administration Re-Assessment/Re-Exam: Ativan 2 mg was given IM. This did calm her down after about 20 minutes. Cameron then did a behavioral health consult. Medical Clearance: 01/26/21 14:48 Labs are nml. She is cleared for transfer for inpatient tx. Arrangemnets are being made for this. She was moved to the floor with supervision. Departure - Departure Time of Disposition: 18:15 Disposition: DC/Tfer to Psych Hosp/Unit 65 Condition: Fair Clinical Impression: Suicidal ideation, Alcohol abuse - Discharge Information *PRESCRIPTION DRUG MONITORING PROGRAM REVIEWED*: Yes *COPY OF PRESCRIPTION DRUG MONITORING REPORT IN PATIENT NAKIA: Yes Referrals: PCP,None [Primary Care Provider] - Forms: ED Department Discharge Additional Instructions: waiting for a Facility to accept pt. She will be transferred to [facility]. Dr Caballero accepted the pt. She will be transferred by S. Sepsis Event Note (ED) - Evaluation Sepsis Screening Result: No Definite Risk - Focused Exam Vital Signs: Vital Signs Temp Pulse Resp BP Pulse Ox 01/26/21 13:56 97.7 F 102 H 16 118/72 97
== END 2021-01-26 18:33 ==
LOC: LB.ED 10:57
DX: F10.10 Alcohol abuse, uncomplicated (principal); Y90.6 Blood alcohol level of 120-199 mg/100 ml; Z88.2 Allergy status to sulfonamides; Z72.0 Tobacco use; Z20.822 Contact with and (suspected) exposure to COVID-19
CPT/HCPCS: 36415; 80053; 80307; 81001; 84443; 85025; 96372; 99284; A9270-GY; J2060; U0002

== ENCOUNTER 2021-02-23 18:48 | Emergency (ER) | payer BC ==
[2021-02-23] MEDS: Ondansetron 4 MG Tab.DIS PO ONE (19:15)
[2021-02-23] MEDS: Meclizine 12.5 MG Tab PO ONE (19:46)
[2021-02-23] MEDS: Sodium Chloride 0.9% 1,000 ML IV ONE (20:18)
[2021-02-23] MEDS: HYDROmorphone 2 MG/ML SDV IVPUSH ONE (20:23)
--- NOTE | 2021-02-23 20:50 | EDM.PDOC ---
ED HPI GENERAL MEDICAL PROBLEM - General Chief Complaint: General Stated Complaint: dizziness Time Seen by Provider: 02/23/21 19:00 - History of Present Illness INITIAL COMMENTS - FREE TEXT/NARRATIVE: Patient comes in with complaints of dizziness that started this morning when she woke up. seems like is worse when she is standing or moving around it gets somewhat better when she sits still. She has been nauseated and has vomited twice. She feels that her eyes are twitching a little as well but no one seems to be able to see this on a look at her. Patient denies any recent falls or injuries. She denies feeling sick recently. She has not had any previous history of similar nature. - Related Data Allergies Allergy/AdvReac Type Severity Reaction Status Date / Time Sulfa Allergy Other Uncoded 02/23/21 20:31 Home Meds: Home Meds Escitalopram [Lexapro] 20 mg PO DAILY 01/26/21 [History] busPIRone [Buspar] 15 mg PO BID 01/26/21 [History] ARIPiprazole [Abilify] 10 mg PO DAILY 02/23/21 [History] Past Medical History - Past Health History Medical/Surgical History: Denies Medical/Surgical History Cardiovascular History: Reports: None Respiratory History: Reports: None Gastrointestinal History: Reports: None Genitourinary History: Reports: UTI, Recurrent SALES COUNSELOR History: Reports: 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, Other (See Below) Other SALES COUNSELOR History: miscarriage Musculoskeletal History: Reports: Fracture, Other (See Below) Other Musculoskeletal History: L foot fx of 8 bones with hardware in 2014 Neurological History: Reports: None Psychiatric History: Reports: Anxiety, Depression, Suicidal Ideation Endocrine/Metabolic History: Reports: None Hematologic History: Reports: None Oncologic (Cancer) History: Reports: None Dermatologic History: Reports: None - Infectious Disease History Infectious Disease History: Reports: Chicken Pox, Mumps - Past Surgical History GI Surgical History: Reports: Appendectomy Female Surgical History: Reports: Cystectomy, Other (See Below) Other Female Surgeries/Procedures: surgery for endometriosos; cyst removal from R ovary Musculoskeletal Surgical History: Reports: ORIF Social & Family History - Family History Family Medical History: No Pertinent Family History - Caffeine Use Caffeine Use: Reports: None ED ROS GENERAL - Review of Systems Review Of Systems: Comprehensive ROS is negative, except as noted in HPI. Neurological: Reports: Dizziness ED EXAM, GENERAL - Physical Exam Exam: See Below Free Text/Narrative:: Objective General appearance patient is awake and alert no respiratory distress vital signs are reviewed they are normal. Physical exam eye exam pupils are equal round and reactive to light she does have mild nystagmus when she looks to the left. Ears TMs are slightly bulging with some yellow fluid behind them. Oral mucous membranes are mildly dry tonsils nonenlarged injected pharynx noninflamed. Lungs are clear with good air exchange throughout the lung berrios. Cardiac heart sounds distinct S1-S2 present regular rate no murmurs. Skin is warm and dry abdomen soft and nontender. #1 Interpretation EKG Date: 02/23/21 Time: 19:30 Course - Orders/Labs/Meds Orders: Active Orders 24 hr Category Date Time Status EKG Documentation Completion [RC] ASDIRECTED Care 02/23/21 19:16 Active Head wo Cont [CT] Stat Exams 02/23/21 19:16 Ordered Sodium Chloride 0.9% [Normal Saline] 1,000 ml Med 02/23/21 20:10 Ordered IV .BOLUS EKG 12 Lead [EK] Stat Ther 02/23/21 19:16 Ordered Medication Orders Sodium Chloride (Normal Saline) 1,000 mls @ 999 mls/hr IV .BOLUS ONE Stop: 02/23/21 21:10 Labs: Laboratory Tests 02/23/21 02/23/21 02/23/21 Range/Units 19:40 19:40 19:40 WBC 11.5 H (4.0-11.0) K/uL RBC 4.14 (3.80-5.80) M/uL Hgb 12.8 (11.5-16.5) g/dL Hct 39.0 (37.0-47.0) % MCV 94 (76-96) fL MCH 30.9 (27.0-32.0) pg MCHC 32.8 (31.0-35.0) g/dL RDW 13.8 (11.0-16.0) % Plt Count 293 (150-500) K/uL MPV 10.3 H (6.0-10.0) fL Neut % (Auto) 63.4 (45.0-70.0) % Lymph % (Auto) 27.9 (20.0-40.0) % [place] % (Auto) 7.6 (3.0-10.0) % Eos % (Auto) 0.8 L (1.0-5.0) % Baso % (Auto) 0.3 (0.0-0.5) % Neut # (Auto) 7.31 (2.00-7.50) K/uL Lymph # (Auto) 3.21 (1.50-4.00) K/uL [place] # (Auto) 0.87 H (0.20-0.80) K/uL Eos # (Auto) 0.09 (0.04-0.40) K/uL Baso # (Auto) 0.03 (0.02-0.10) K/uL Sodium 139 (136-145) mmol/L Potassium 4.3 (3.5-5.1) mmol/L Chloride 107 (98-107) mmol/L Carbon Dioxide 29.2 (21.0-32.0) mmol/L Anion Gap 7.1 (5.0-15.0) mmol/L BUN 11 (8-26) mg/dL Creatinine 1.10 H D (0.55-1.02) mg/dL Est Cr Clr Drug Dosing TNP Estimated GFR (MDRD) 59 L (>60) MLS/MIN BUN/Creatinine Ratio 10.0 (6-25) Glucose 95 (74-100) mg/dL Calcium 8.9 (8.5-10.1) mg/dL Total Bilirubin 0.4 D (0.0-1.0) mg/dL AST 8 L (15-37) U/L ALT 23 (12-78) U/L Alkaline Phosphatase 91 (46-116) U/L Troponin I < 0.017 (0.000-0.060) ng/mL Total Protein 6.8 (6.4-8.2) g/dL Albumin 3.6 (3.4-5.0) g/dL Globulin 3.2 (2.2-4.2) g/dL Albumin/Globulin Ratio 1.1 (0.8-2.0) Meds: Medications Generic Name Dose Route Start Last Admin Trade Name Freq PRN Reason Stop Dose Admin Sodium Chloride 1,000 mls @ 999 mls/hr 02/23/21 20:10 Normal Saline IV 02/23/21 21:10 .BOLUS ONE Discontinued Medications Generic Name Dose Route Start Last Admin Trade Name Olive PRN Reason Stop Dose Admin Hydromorphone HCl 0.5 mg 02/23/21 20:10 Hydromorphone 2 Mg/Ml Sdv IVPUSH 02/23/21 20:11 ONETIME ONE Meclizine HCl 25 mg 02/23/21 19:31 02/23/21 19:46 Meclizine 12.5 Mg Tab PO 02/23/21 19:32 25 mg ONETIME ONE Administration Ondansetron HCl 4 mg 02/23/21 19:15 02/23/21 19:15 Ondansetron 4 Mg Tab.Dis PO 02/23/21 19:16 4 mg ONETIME ONE Administration - Re-Assessments/Exams Free Text/Narrative Re-Assessment/Exam: 02/23/21 20:49 Patient was given Zofran 4 mg sublingual, and this did resolve her nausea. She was then given meclizine 25 mg p.o. While waiting for lab and head CT results she developed a headache at which point we started an IV and see you was given Zofran 0.5 mg IV and normal saline was started in a bolus form. The patient's condition quickly improved and after about 30 minutes she states that she feels much better she is wondering when she can go home. Lab results are normal head CT is normal with no acute findings. The patient will be monitored here until her IV fluids have infused. She will try eating some toast because she is now hungry. She will be discharged home with meclizine 25 mg 3 times daily giving 15 tablets. She is not to do anything on a computer for at least the next 24 hours to help reduce eyestrain. And she is encouraged to take Claritin-D or some other form of antihistamine decongestant for a few days as well. Follow-up is as needed end of dictation Departure - Departure Time of Disposition: 21:00 Disposition: Home, Self-Care 01 Condition: Good Clinical Impression: Vertigo, benign positional Qualifiers: Laterality: left Qualified Code(s): H81.12 - Benign paroxysmal vertigo, left ear - Discharge Information *PRESCRIPTION DRUG MONITORING PROGRAM REVIEWED*: Not Applicable *COPY OF PRESCRIPTION DRUG MONITORING REPORT IN PATIENT NAKIA: Not Applicable Additional Instructions: Patient is to go home and rest through tomorrow with only light duty activities as tolerated. Take the meclizine regularly for 2 or 3 days and then as needed as her symptoms should be improving. No use of the computer through tomorrow to reduce eyestrain. Use Claritin-D or similar antihistamine/decongestant for a few days. Follow-up as needed. - My Orders Last 24 Hours: My Active Orders 02/23/21 19:16 EKG Documentation Completion [RC] ASDIRECTED Head wo Cont [CT] Stat EKG 12 Lead [EK] Stat 02/23/21 20:10 Sodium Chloride 0.9% [Normal Saline] 1,000 ml IV .BOLUS - Assessment/Plan Last 24 Hours: My Active Orders 02/23/21 19:16 EKG Documentation Completion [RC] ASDIRECTED Head wo Cont [CT] Stat EKG 12 Lead [EK] Stat 02/23/21 20:10 Sodium Chloride 0.9% [Normal Saline] 1,000 ml IV .BOLUS
--- NOTE | 2021-02-24 12:03 | CT ---
DATE OF SERVICE: 02/23/21 CLINICAL DATA: Dizziness. UNENHANCED BRAIN CT: Multislice acquisition through the brain without IV contrast was performed. Comparison is made to a prior exam dated 06/17/10. No masses or mass effect. No intracranial hemorrhage. No evidence of acute or subacute infarct. No osseous abnormalities. IMPRESSION: No acute intracranial abnormalities. [id number] [facility]
== END 2021-02-23 21:18 | disposition home or self-care (01) ==
LOC: LB.ED 18:48
DX: H81.12 Benign paroxysmal vertigo, left ear (principal); Z79.899 Other long term (current) drug therapy; Z88.2 Allergy status to sulfonamides
CPT/HCPCS: 36415; 70450; 80053; 84484; 85025; 93005; 96374; 99284-25; A9270-GY; J1170; J7030

== ENCOUNTER 2021-03-28 21:47 | Emergency (ER) | payer BC ==
[2021-03-28] MEDS ORDERED: Sodium Chloride 0.9% 10 ML Syringe FLUSH PRN (22:05)
--- NOTE | 2021-03-28 22:09 | EDM.PDOC ---
ED HPI GENERAL MEDICAL PROBLEM - General Chief Complaint: Abdominal Pain Stated Complaint: abd pain Time Seen by Provider: 03/28/21 21:50 Source of Information: Reports: Patient History Limitations: Reports: No Limitations - History of Present Illness INITIAL COMMENTS - FREE TEXT/NARRATIVE: patient presented to the ER with a c/o LLQ pain - reports it started 5 hrs ago and has been getting worse, not improving with OTC pain meds. no fever or chills. mild nausea but no emesis. no CP or SOB. h/o endometriosis and right ovarian cyst that required laparoscopic surgical removal 3 years ago. no vaginal discharges. good BMs. Onset: Sudden Duration: Hour(s): (5) Location: Reports: Abdomen Quality: Reports: Stabbing Severity: Severe Improves with: Reports: None Worsens with: Reports: Movement Left Lower Abdominal Pain Score (Numeric/FACES): 9 - Related Data Allergies Allergy/AdvReac Type Severity Reaction Status Date / Time Sulfa Allergy Other Uncoded 03/28/21 21:53 Home Meds: Home Meds Escitalopram [Lexapro] 20 mg PO DAILY 01/26/21 [History] busPIRone [Buspar] 7.5 mg PO BID 01/26/21 [History] ARIPiprazole [Abilify] 10 mg PO DAILY 02/23/21 [History] Past Medical History - Past Health History Medical/Surgical History: Denies Medical/Surgical History Cardiovascular History: Reports: None Respiratory History: Reports: None Gastrointestinal History: Reports: None Genitourinary History: Reports: UTI, Recurrent 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 History: Reports: 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, Other (See Below) Other 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 History: miscarriage Musculoskeletal History: Reports: Fracture, Other (See Below) Other Musculoskeletal History: L foot fx of 8 bones with hardware in 2014 Neurological History: Reports: None Psychiatric History: Reports: Anxiety, Depression, Suicidal Ideation Endocrine/Metabolic History: Reports: None Hematologic History: Reports: None Oncologic (Cancer) History: Reports: None Dermatologic History: Reports: None - Infectious Disease History Infectious Disease History: Reports: Chicken Pox, Mumps - Past Surgical History GI Surgical History: Reports: Appendectomy Female Surgical History: Reports: Cystectomy, Other (See Below) Other Female Surgeries/Procedures: surgery for endometriosos; cyst removal from R ovary Musculoskeletal Surgical History: Reports: ORIF Social & Family History - Family History Family Medical History: No Pertinent Family History - Caffeine Use Caffeine Use: Reports: Coffee, Soda Other Caffeine Use: one soda a day, 2 cups coffee daily ED ROS GENERAL - Review of Systems Review Of Systems: See Below Constitutional: Reports: No Symptoms HEENT: Reports: No Symptoms Respiratory: Reports: No Symptoms Cardiovascular: Reports: No Symptoms Musculoskeletal: Reports: No Symptoms Skin: Reports: No Symptoms Neurological: Reports: No Symptoms Psychiatric: Reports: Anxiety, Depression ED EXAM, GI/ABD - Physical Exam Exam: See Below Exam Limited By: No Limitations General Appearance: Alert, WD/WN, No Apparent Distress Eyes: Bilateral: EOMI Head: Atraumatic Respiratory/Chest: No Respiratory Distress Cardiovascular: Normal Peripheral Pulses GI/Abdominal Exam: Normal Bowel Sounds, Soft, Tender (LLQ) Extremities: Normal Inspection, Normal Range of Motion Neurological: Alert, Oriented, No Motor/Sensory Deficits Course - Vital Signs Last Recorded V/S: Last Vital Signs Temp 36.6 C 03/28/21 23:34 Pulse 89 03/28/21 23:34 Resp 18 03/28/21 23:34 BP 113/65 03/28/21 23:34 Pulse Ox 96 03/28/21 23:34 - Orders/Labs/Meds Orders: Active Orders 24 hr Category Date Time Status Abdomen Pelvis w Cont [CT] Stat Exams 03/28/21 22:05 Ordered BASIC METABOLIC PANEL,BMP [CHEM] Stat Lab 03/28/21 22:05 Ordered CBC W/O DIFF,HEMOGRAM [HEME] Stat Lab 03/28/21 22:05 Ordered HCG QUALITATIVE,URINE [URCHEM] Stat Lab 03/28/21 22:20 Ordered UA RFX DEANGELO AND CULT IF INDIC [URIN] Stat Lab 03/28/21 22:06 Ordered Sodium Chloride 0.9% [Saline Flush] Med 03/28/21 22:05 Active 10 ml FLUSH ASDIRECTED PRN Saline Lock Insert [OM.PC] Routine Oth 03/28/21 22:05 Ordered Medication Orders Sodium Chloride (Sodium Chloride 0.9% 10 Ml Syringe) 10 ml FLUSH ASDIRECTED PRN PRN Reason: Keep Vein Open Meds: Medications Generic Name Dose Route Start Last Admin Trade Name Freq PRN Reason Stop Dose Admin Sodium Chloride 10 ml 03/28/21 22:05 Sodium Chloride 0.9% 10 Ml Syringe FLUSH ASDIRECTED PRN Keep Vein Open Discontinued Medications Generic Name Dose Route Start Last Admin Trade Name Olive PRN Reason Stop Dose Admin Ketorolac Tromethamine 60 mg 03/28/21 22:06 03/28/21 22:15 Ketorolac 60 Mg/2 Ml Sdv IM 03/28/21 22:07 60 mg ONETIME ONE Administration - Re-Assessments/Exams Free Text/Narrative Re-Assessment/Exam: vitals WNL labs - no leukocytosis, and normal RFT and UA. negative HCG. pain was controlled with Toradol and morphine. CT abd/pelv showed - left adnexal cyst 1.9x3.2cm. based on the size of this cyst - conservative management with pain control, until it either burst or need a surgical intervention if got bigger and became more symptomatic. patient agrees with this plan Departure - Departure Time of Disposition: 23:43 Disposition: Home, Self-Care 01 Condition: Good Clinical Impression: Ovarian cyst Qualifiers: Laterality: right Qualified Code(s): N83.201 - Unspecified ovarian cyst, right side - Discharge Information *PRESCRIPTION DRUG MONITORING PROGRAM REVIEWED*: Not Applicable *COPY OF PRESCRIPTION DRUG MONITORING REPORT IN PATIENT NAKIA: Not Applicable Forms: ED Department Discharge Sepsis Event Note (ED) - Evaluation Sepsis Screening Result: No Definite Risk - Focused Exam Vital Signs: Vital Signs Temp Pulse Resp BP Pulse Ox 03/28/21 23:34 36.6 C 89 18 113/65 96 03/28/21 21:55 37.0 C 107 H 18 113/74 96 - Problem List & Annotations (1) Lower abdominal pain SNOMED Code(s): 54789820 Code(s): R10.30 - LOWER ABDOMINAL PAIN, UNSPECIFIED Status: Acute Current Visit: Yes (2) Ovarian cyst SNOMED Code(s): 12718761 Code(s): N83.209 - UNSPECIFIED OVARIAN CYST, UNSPECIFIED SIDE Status: Acute Priority: High Current Visit: Yes Qualifiers: Laterality: right Qualified Code(s): N83.201 - Unspecified ovarian cyst, right side - Problem List Review Problem List Initiated/Reviewed/Updated: Yes - My Orders Last 24 Hours: My Active Orders 03/28/21 22:05 Abdomen Pelvis w Cont [CT] Stat BASIC METABOLIC PANEL,BMP [CHEM] Stat CBC W/O DIFF,HEMOGRAM [HEME] Stat Sodium Chloride 0.9% [Saline Flush] 10 ml FLUSH ASDIRECTED PRN Saline Lock Insert [OM.PC] Routine 03/28/21 22:06 UA RFX DEANGELO AND CULT IF INDIC [URIN] Stat 03/28/21 22:20 HCG QUALITATIVE,URINE [URCHEM] Stat - Assessment/Plan Last 24 Hours: My Active Orders 03/28/21 22:05 Abdomen Pelvis w Cont [CT] Stat BASIC METABOLIC PANEL,BMP [CHEM] Stat CBC W/O DIFF,HEMOGRAM [HEME] Stat Sodium Chloride 0.9% [Saline Flush] 10 ml FLUSH ASDIRECTED PRN Saline Lock Insert [OM.PC] Routine 03/28/21 22:06 UA RFX DEANGELO AND CULT IF INDIC [URIN] Stat 03/28/21 22:20 HCG QUALITATIVE,URINE [URCHEM] Stat Plan: - take pain medications as prescribed - follow up with your PCP in 3-5 days as needed - return to the ER if symptoms got worse or any concerns
[2021-03-28] MEDS: Ketorolac 60 MG/2 ML SDV IM ONE (22:15)
[2021-03-28] MEDS: Morphine 10 MG/ML Syringe IVPUSH ONE (23:44)
[2021-03-28] MEDS ORDERED: Acetaminophen/HYDROcodone 325-5 MG Tab ONE (23:50)
[2021-03-28] MEDS: Morphine 10 MG/ML SDV ONE (23:54)
--- NOTE | 2021-03-29 08:38 | CT ---
Date of Service: 03/28/21 Clinical Data: LLQ pain ? ENHANCED ABDOMEN AND PELVIC CT: Multislice acquisition through the abdomen and pelvis with IV, but without oral contrast was performed. Comparison is made to a prior exam dated 08/02/18. There are mild atelectatic changes in both lung bases. The lung bases are otherwise clear. The heart size is normal. The liver is normal size with homogeneous attenuation. No focal hepatic lesions. No biliary duct dilatation. The gallbladder appears normal. The spleen appears normal. 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 The pancreas appears normal. The right and left adrenals appear normal. The right and left kidneys appear normal and enhance symmetrically. No hydronephrosis or hydroureter. The bladder is fluid filled. It appears normal. There is fluid within the endometrial cavity of the uterus. There is a 3.2 cm fluid density lesion in the left ovary consistent with a left ovarian cyst. Followup ultrasound is recommended to confirm resolution. No evidence of appendicitis. There is mural thickening within the ascending and transverse colon. This is probably related to nondistention. Colitis should be considered. There is a moderate amount of stool noted within the sigmoid colon and rectum. No free air. No free fluid. No dilated loops of bowel. No adenopathy. No aortic aneurysm or dissection. There is a fat-containing umbilical hernia. No other significant findings. [id number] [facility]
== END 2021-03-29 00:01 | disposition home or self-care (01) ==
LOC: LB.ED 21:47
DX: N83.201 Unspecified ovarian cyst, right side (principal); Z88.2 Allergy status to sulfonamides
CPT/HCPCS: 36415; 74177; 80048; 81003; 81025; 85027; 96372; 96374; 99284; A9270; J1885; J2270

== ENCOUNTER 2021-04-04 12:00 | Emergency (ER) | payer BC ==
--- NOTE | 2021-04-04 14:29 | EDM.PDOCBH ---
ED HPI GENERAL MEDICAL PROBLEM - General Stated Complaint: ANXIETY Time Seen by Provider: 04/04/21 13:40 - History of Present Illness INITIAL COMMENTS - FREE TEXT/NARRATIVE: Pt is here with C/O anxiety issues that have become much worse over the last day or so. She has had no stressful situations lately, but last she started to feel anxious. She does take Lexapro and Buspar as directed. She has no thoughts of harming herself or others. 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: Reports: 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, Other (See Below) Other REGULATORY ATTORNEY History: miscarriage Musculoskeletal History: Reports: Fracture, Other (See Below) Other Musculoskeletal History: L foot fx of 8 bones with hardware in 2014 Neurological History: Reports: None Psychiatric History: Reports: Anxiety, Depression, Suicidal Ideation Endocrine/Metabolic History: Reports: None Hematologic History: Reports: None Oncologic (Cancer) History: Reports: None Dermatologic History: Reports: None - Infectious Disease History Infectious Disease History: Reports: Chicken Pox, Mumps - Past Surgical History Head Surgeries/Procedures: Reports: None GI Surgical History: Reports: Appendectomy Female Surgical History: Reports: Cystectomy, Other (See Below) Other Female Surgeries/Procedures: surgery for endometriosos; cyst removal from R ovary Musculoskeletal Surgical History: Reports: ORIF Social & Family History - Family History Family Medical History: No Pertinent Family History - Caffeine Use Caffeine Use: Reports: Coffee, Soda Other Caffeine Use: one soda a day, 2 cups coffee daily ED ROS GENERAL - Review of Systems Review Of Systems: Comprehensive ROS is negative, except as noted in HPI. Constitutional: Reports: Other (Teary eyed.) Psychiatric: Reports: Anxiety ED EXAM, BEHAVIORAL HEALTH - Physical Exam Exam: See Below Text/Narrative:: Pt is awake and obviously anxious. She has mild SOB and is restless. Psychiatric: Agitated COURSE, BEHAVIORAL HEALTH COMP - Course Re-Assessment/Re-Exam: I gave her Ativan 2 mg IM. She was monitored for about 45 minutes, over which time she improved alot. She is resting quietly now. Breathing is regular. I will send her home on Ativan to use prn. She does have an appt in behavioral health on the of this month, she needs to keep it. I also advise her to see her PCP sooner as needed. Departure - Departure Time of Disposition: 13:50 Disposition: Home, Self-Care 01 Condition: Good Clinical Impression: Anxiety attack - Discharge Information *PRESCRIPTION DRUG MONITORING PROGRAM REVIEWED*: No *COPY OF PRESCRIPTION DRUG MONITORING REPORT IN PATIENT NAKIA: No Referrals: PCP,None [Primary Care Provider] -
[2021-04-04] MEDS ORDERED: LORazepam 2 MG/ML SDV IM ONE (14:44)
== END 2021-04-04 14:25 | disposition home or self-care (01) ==
LOC: LB.ED 13:34
DX: F41.9 Anxiety disorder, unspecified (principal); Z88.2 Allergy status to sulfonamides; Z79.899 Other long term (current) drug therapy
CPT/HCPCS: 99283; J2060; 96372

== ENCOUNTER 2021-04-16 11:29 | Emergency (ER) | payer BC ==
[2021-04-16] MEDS ORDERED: Ciprofloxacin 0.3% Ophth Soln 2.5 ML Bottle ONE (12:00)
--- NOTE | 2021-04-16 12:10 | EDM.PDOC ---
ED HPI GENERAL MEDICAL PROBLEM - General Chief Complaint: Eye Problems Stated Complaint: pink eye Time Seen by Provider: 04/16/21 11:50 Source of Information: Reports: Patient History Limitations: Reports: No Limitations - History of Present Illness INITIAL COMMENTS - FREE TEXT/NARRATIVE: This patient presents to the emergency department for evaluation of eye redness. She states she woke up with a red eye that is crusting and oozing. She states she used some old make-up yesterday and believes she may have contaminated her eye with that. She denies fever, runny nose, cough, other symptoms or concerns. - Related Data Allergies Allergy/AdvReac Type Severity Reaction Status Date / Time Sulfa Allergy Mild Other Uncoded 04/16/21 11:31 Home Meds: Home Meds Escitalopram [Lexapro] 20 mg PO DAILY 01/26/21 [History] busPIRone [Buspar] 7.5 mg PO BID 01/26/21 [History] ARIPiprazole [Abilify] 10 mg PO DAILY 02/23/21 [History] FLUoxetine HCl [Prozac] 20 mg PO DAILY 04/16/21 [History] Past Medical History - Past Health History Medical/Surgical History: Denies Medical/Surgical History Cardiovascular History: Reports: None Respiratory History: Reports: None Gastrointestinal History: Reports: None Genitourinary History: Reports: UTI, Recurrent 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: Reports: 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, Other (See Below) Other 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: miscarriage Musculoskeletal History: Reports: Fracture, Other (See Below) Other Musculoskeletal History: L foot fx of 8 bones with hardware in 2014 Neurological History: Reports: None Psychiatric History: Reports: Anxiety, Depression, Suicidal Ideation Endocrine/Metabolic History: Reports: None Hematologic History: Reports: None Oncologic (Cancer) History: Reports: None Dermatologic History: Reports: None - Infectious Disease History Infectious Disease History: Reports: Chicken Pox, Mumps - Past Surgical History Head Surgeries/Procedures: Reports: None GI Surgical History: Reports: Appendectomy Female Surgical History: Reports: Cystectomy, Other (See Below) Other Female Surgeries/Procedures: surgery for endometriosos; cyst removal from R ovary Musculoskeletal Surgical History: Reports: ORIF Social & Family History - Family History Family Medical History: No Pertinent Family History - Tobacco Use Tobacco Use Status *Q: Current Every Day Tobacco User Years of Tobacco use: 11 Packs/Tins Daily: 1 - Caffeine Use Caffeine Use: Reports: Coffee, Soda Other Caffeine Use: one soda a day, 2 cups coffee daily ED ROS GENERAL - Review of Systems Review Of Systems: Comprehensive ROS is negative, except as noted in HPI. ED EXAM GENERAL W FULL EYE - Physical Exam Exam: See Below Exam Limited By: No Limitations General Appearance: Alert, WD/WN, No Apparent Distress Eye Exam: Bilateral Eye: PERRL (Right eye clear; left eye erythematous injected with crusty yellow drainage noted.) Eyelids: Bilateral: Normal Appearance Conjunctiva & Sclera: Left: Injected Extraocular Movements: Bilateral: Intact Ears: Normal External Exam Nose: Normal Inspection Head: Atraumatic, Normocephalic Neck: Normal Inspection Respiratory/Chest: No Respiratory Distress, No Accessory Muscle Use Course - Re-Assessments/Exams Free Text/Narrative Re-Assessment/Exam: 04/16/21 12:08 This patient presents to the ER today with eye symptoms as detailed above. Signs and symptoms at this time are most consistent with conjunctivitis. Patient does not wear contact lenses. Presentation is not consistent with a foreign body, corneal abrasion, acute angle glaucoma, corneal ulcer, globe trauma or other including periorbital cellulitis. She was started on ciprofloxacin drops to cover bacterial conjunctivitis. She should follow-up with her primary care provider or ophthalmology in 3 to 4 days for recheck as needed or return immediately to the ED if she develops any pain, spreading redness, fevers, blurred vision, any other new or worsening symptoms. The patient was stable at the time of discharge. Departure - Departure Time of Disposition: 12:05 Disposition: Home, Self-Care 01 Condition: Good Clinical Impression: Conjunctivitis - Discharge Information *PRESCRIPTION DRUG MONITORING PROGRAM REVIEWED*: Not Applicable *COPY OF PRESCRIPTION DRUG MONITORING REPORT IN PATIENT NAKIA: Not Applicable Instructions: Bacterial Conjunctivitis, Adult, [id number] Forms: ED Department Discharge Additional Instructions: Apply warm compress to relieve irritation, use drops as directed. Refrain from touching eyes, keep hands clean Drop 2 drops in eye every 6 hours until symptoms resolve
== END 2021-04-16 12:05 | disposition home or self-care (01) ==
LOC: LB.ED 11:29
DX: H10.9 Unspecified conjunctivitis (principal); Z72.0 Tobacco use; Z88.2 Allergy status to sulfonamides; Z79.899 Other long term (current) drug therapy
CPT/HCPCS: 99282; A9270

== ENCOUNTER 2021-04-24 05:16 | Emergency (ER) | payer BC ==
--- NOTE | 2021-04-24 05:39 | EDM.PDOC ---
ED HPI GENERAL MEDICAL PROBLEM - General Chief Complaint: Eye Problems Stated Complaint: EYE PAIN Time Seen by Provider: 04/24/21 05:30 Source of Information: Reports: Patient History Limitations: Reports: No Limitations - History of Present Illness INITIAL COMMENTS - FREE TEXT/NARRATIVE: This patient presents to the emergency department for evaluation of eye pain. She has been seen four times in the past week for the same concern. She is originally seen and diagnosed with conjunctivitis of the left eye and provided with eyedrops. Since that time she has been seen in the clinic and by an pin ball machine mechanic in [place]. Her eye redness and pain now includes both eyes. She has gotten various opinions and diagnoses as well as different drops. She is currently taking Zithromax orally as well as ophthalmic drops provided by ophthalmology. She presents this morning for increased pain and states she has been able to sleep. She denies fever, she denies sore throat, ear pain, cough, other concerns or complaints. - Related Data Allergies Allergy/AdvReac Type Severity Reaction Status Date / Time Sulfa Allergy Mild Other Uncoded 04/16/21 11:31 Home Meds: Home Meds Escitalopram [Lexapro] 20 mg PO DAILY 01/26/21 [History] busPIRone [Buspar] 7.5 mg PO BID 01/26/21 [History] ARIPiprazole [Abilify] 10 mg PO DAILY 02/23/21 [History] FLUoxetine HCl [Prozac] 20 mg PO DAILY 04/16/21 [History] Past Medical History - Past Health History Medical/Surgical History: Denies Medical/Surgical History Cardiovascular History: Reports: None Respiratory History: Reports: None Gastrointestinal History: Reports: None Genitourinary History: Reports: UTI, Recurrent 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: Reports: 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, Other (See Below) Other 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: miscarriage Musculoskeletal History: Reports: Fracture, Other (See Below) Other Musculoskeletal History: L foot fx of 8 bones with hardware in 2014 Neurological History: Reports: None Psychiatric History: Reports: Anxiety, Depression, Suicidal Ideation Endocrine/Metabolic History: Reports: None Hematologic History: Reports: None Oncologic (Cancer) History: Reports: None Dermatologic History: Reports: None - Infectious Disease History Infectious Disease History: Reports: Chicken Pox, Mumps - Past Surgical History Head Surgeries/Procedures: Reports: None GI Surgical History: Reports: Appendectomy Female Surgical History: Reports: Cystectomy, Other (See Below) Other Female Surgeries/Procedures: surgery for endometriosos; cyst removal from R ovary Musculoskeletal Surgical History: Reports: ORIF Social & Family History - Family History Family Medical History: No Pertinent Family History - Caffeine Use Caffeine Use: Reports: Coffee, Soda Other Caffeine Use: one soda a day, 2 cups coffee daily ED ROS GENERAL - Review of Systems Review Of Systems: See Below Constitutional: Denies: Fever HEENT: Reports: Eye Discharge, Eye Pain. Denies: Ear Pain, Rhinitis Respiratory: Denies: Shortness of Breath, Cough Cardiovascular: Denies: Chest Pain GI/Abdominal: Reports: No Symptoms : Reports: No Symptoms Musculoskeletal: Reports: No Symptoms Skin: Reports: No Symptoms (Both eyes it was only the one I) Neurological: Reports: No Symptoms ED EXAM GENERAL W FULL EYE - Physical Exam Exam: See Below Exam Limited By: No Limitations General Appearance: Alert, No Apparent Distress Eye Exam: Bilateral Eye: Conjunctival Injection (Right worse than left), PERRL Visual Acuity (R) 20/: 200 Visual Acuity (L) 20/: 40 Eyelids: Bilateral: Edema (Right worse than left), Erythema (Right worse than left) Conjunctiva & Sclera: Right: Conjunctival Edema Cornea Exam: Bilateral: Normal Appearance Extraocular Movements: Bilateral: Intact Pupils: Normal Accommodation Ears: Normal External Exam Throat/Mouth: Normal Inspection (No) Head: Atraumatic, Normocephalic Neck: Normal Inspection, Full Range of Motion Respiratory/Chest: No Respiratory Distress, No Accessory Muscle Use (Basil the bedroom) Back Exam: Normal Inspection Extremities: Normal Inspection Neurological: Alert, Oriented Psychiatric: Normal Affect (Yes) Course - Re-Assessments/Exams Free Text/Narrative Re-Assessment/Exam: 04/24/21 05:49 This patient presents today with eye symptoms as detailed above. Both of her eyes are erythematous, swollen and quite painful. Proparacaine eyedrops were used for comfort. She was instructed to go immediately to ophthalmology this morning at 8 AM. There is no new trauma; there are no periorbital symptoms. She will continue on medications previously prescribed. Patient was stable at the time of discharge. Departure - Departure Time of Disposition: 05:45 Disposition: Home, Self-Care 01 Condition: Fair Clinical Impression: Conjunctivitis - Discharge Information Forms: ED Department Discharge Additional Instructions: Follow up as discussed
== END 2021-04-24 05:41 | disposition home or self-care (01) ==
LOC: LB.ED 05:16
DX: H10.9 Unspecified conjunctivitis (principal); Z88.2 Allergy status to sulfonamides
CPT/HCPCS: 99283

== ENCOUNTER 2021-06-01 21:35 | Emergency (ER) | payer BC ==
[2021-06-01] MEDS ORDERED: Sodium Chloride 0.9% 1,000 ML IV ONE (22:11)
[2021-06-01] MEDS ORDERED: LORazepam 1 MG Tab PO ONE (22:11)
[2021-06-02] MEDS ORDERED: Nicotine 21 MG/24 Hr Patch TRDERM ONE (03:09)
--- NOTE | 2021-06-14 09:17 | EDM.PDOCBH ---
ED HPI GENERAL MEDICAL PROBLEM - General Time Seen by Provider: 06/01/21 21:55 - History of Present Illness INITIAL COMMENTS - FREE TEXT/NARRATIVE: Pt is here with her Mom after swallowing 2 handfuls of pills. Her Mom tells us they were together this evening [place]. They dropped the pt off at her house, and a couple minuted later they found her wallet in the car. They called her and she told them she had taken a bunch of pills. She told us she took a handful of Atarax, and a handful of Buspar pills. The pt is crying initially and is not answering questions well at this time. When I asked her if she was trying to kill herself she said maybe. Mom states she was her usual self tonite until the drive into town, when she started to text alot and became quiet. - Related Data Allergies Allergy/AdvReac Type Severity Reaction Status Date / Time Sulfa Allergy Mild Other Uncoded 04/24/21 06:11 Home Meds: Home Meds Escitalopram [Lexapro] 20 mg PO DAILY 01/26/21 [History] busPIRone [Buspar] 7.5 mg PO BID 01/26/21 [History] ARIPiprazole [Abilify] 10 mg PO DAILY 02/23/21 [History] FLUoxetine HCl [Prozac] 20 mg PO DAILY 04/16/21 [History] Past Medical History - Past Health History Medical/Surgical History: Denies Medical/Surgical History Cardiovascular History: Reports: None Respiratory History: Reports: None Gastrointestinal History: Reports: None Genitourinary History: Reports: UTI, Recurrent 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: Reports: 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, Other (See Below) Other 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: miscarriage Musculoskeletal History: Reports: Fracture, Other (See Below) Other Musculoskeletal History: L foot fx of 8 bones with hardware in 2014 Neurological History: Reports: None Psychiatric History: Reports: Anxiety, Depression, Suicidal Ideation Endocrine/Metabolic History: Reports: None Hematologic History: Reports: None Oncologic (Cancer) History: Reports: None Dermatologic History: Reports: None - Infectious Disease History Infectious Disease History: Reports: Chicken Pox, Mumps - Past Surgical History Head Surgeries/Procedures: Reports: None GI Surgical History: Reports: Appendectomy Female Surgical History: Reports: Cystectomy, Other (See Below) Other Female Surgeries/Procedures: surgery for endometriosos; cyst removal from R ovary Musculoskeletal Surgical History: Reports: ORIF Social & Family History - Family History Family Medical History: No Pertinent Family History - Caffeine Use Caffeine Use: Reports: Coffee, Soda Other Caffeine Use: one soda a day, 2 cups coffee daily ED ROS GENERAL - Review of Systems Review Of Systems: Comprehensive ROS is negative, except as noted in HPI. Psychiatric: Reports: Suicidal Ideation ED EXAM, BEHAVIORAL HEALTH - Physical Exam Exam: See Below General Appearance: Other (Pt is crying. Her pulse is rapid, from 140 to 160. No respiratory distress.) Eye Exam: Bilateral Eye: PERRL #1 Interpretation EKG Date: 06/02/21 Time: 02:40 Rhythm: Other (Tachycardia.) COURSE, BEHAVIORAL HEALTH COMP - Course Vital Signs: Last Vital Signs Temp 99.1 F 06/02/21 03:19 Pulse 102 H 06/02/21 03:19 Resp 18 06/02/21 03:19 BP 99/58 L 06/02/21 03:19 Pulse Ox 95 06/02/21 03:19 Orders, Labs, Meds: Laboratory Tests 06/01/21 06/01/21 06/01/21 Range/Units 22:04 22:04 22:08 WBC 14.2 H D (4.0-11.0) K/uL RBC 4.66 (3.80-5.80) M/uL Hgb 14.0 (11.5-16.5) g/dL Hct 41.8 (37.0-47.0) % MCV 90 (76-96) fL MCH 30.0 (27.0-32.0) pg MCHC 33.5 (31.0-35.0) g/dL RDW 13.5 (11.0-16.0) % Plt Count 301 (150-500) K/uL MPV 10.2 H (6.0-10.0) fL Neut % (Auto) 53.6 (45.0-70.0) % Lymph % (Auto) 39.3 (20.0-40.0) % [place] % (Auto) 6.1 (3.0-10.0) % Eos % (Auto) 0.8 L (1.0-5.0) % Baso % (Auto) 0.2 (0.0-0.5) % Neut # (Auto) 7.61 H (2.00-7.50) K/uL Lymph # (Auto) 5.59 H (1.50-4.00) K/uL [place] # (Auto) 0.87 H (0.20-0.80) K/uL Eos # (Auto) 0.12 (0.04-0.40) K/uL Baso # (Auto) 0.03 (0.02-0.10) K/uL Sodium 141 (136-145) mmol/L Potassium 3.4 L (3.5-5.1) mmol/L Chloride 108 H (98-107) mmol/L Carbon Dioxide 22.3 (21.0-32.0) mmol/L Anion Gap 14.1 (5.0-15.0) mmol/L BUN 13 D (8-26) mg/dL Creatinine 0.96 (0.55-1.02) mg/dL Est Cr Clr Drug Dosing TNP Estimated GFR (MDRD) > 60 (>60) MLS/MIN BUN/Creatinine Ratio 13.5 (6-25) Glucose 170 H D (74-100) mg/dL Calcium 8.7 (8.5-10.1) mg/dL Total Bilirubin 0.3 (0.0-1.0) mg/dL AST 8 L (15-37) U/L ALT 21 (12-78) U/L Alkaline Phosphatase 86 (46-116) U/L Total Protein 7.5 (6.4-8.2) g/dL Albumin 3.9 (3.4-5.0) g/dL Globulin 3.6 (2.2-4.2) g/dL Albumin/Globulin Ratio 1.1 (0.8-2.0) TSH, Ultra Sensitive 2.022 D (0.358-3.740) uIU/mL Urine Color Urine Appearance (CLEAR) Urine pH (5.0-8.0) Ur Specific [place] (1.003-1.030) Urine Protein (NEGATIVE) mg/dL Urine Glucose (UA) (NEGATIVE) mg/dL Urine Ketones (NEGATIVE) mg/dL Urine Occult Blood (NEGATIVE) Urine Nitrite (NEGATIVE) Urine Bilirubin (NEGATIVE) Urine Urobilinogen (0.2-1.0) E.U./dL Ur Leukocyte Esterase (NEGATIVE) Urine RBC /HPF Urine WBC /HPF Ur Squamous Epith Cells /HPF Urine Bacteria /HPF Salicylates (2.8-20.0) mg/dL Urine Opiates Screen (NEGATIVE) Ur Oxycodone Screen (NEGATIVE) Urine Methadone Screen (NEGATIVE) Acetaminophen 0.0 ug/mL Ur Barbiturates Screen (NEGATIVE) Ur Tricyclics Screen (NEGATIVE) Ur Phencyclidine Scrn (NEGATIVE) Ur Amphetamine Screen (NEGATIVE) U Methamphetamines Scrn (NEGATIVE) Urine MDMA Screen (NEGATIVE) U Benzodiazepines Scrn (NEGATIVE) U Cocaine Metab Screen (NEGATIVE) U Marijuana (THC) Screen (NEGATIVE) Ethyl Alcohol 165.0 H (<3.0) mg/dL 06/01/21 06/01/21 06/01/21 Range/Units 22:23 22:45 22:45 WBC (4.0-11.0) K/uL RBC (3.80-5.80) M/uL Hgb (11.5-16.5) g/dL Hct (37.0-47.0) % MCV (76-96) fL MCH (27.0-32.0) pg MCHC (31.0-35.0) g/dL RDW (11.0-16.0) % Plt Count (150-500) K/uL MPV (6.0-10.0) fL Neut % (Auto) (45.0-70.0) % Lymph % (Auto) (20.0-40.0) % [place] % (Auto) (3.0-10.0) % Eos % (Auto) (1.0-5.0) % Baso % (Auto) (0.0-0.5) % Neut # (Auto) (2.00-7.50) K/uL Lymph # (Auto) (1.50-4.00) K/uL [place] # (Auto) (0.20-0.80) K/uL Eos # (Auto) (0.04-0.40) K/uL Baso # (Auto) (0.02-0.10) K/uL Sodium (136-145) mmol/L Potassium (3.5-5.1) mmol/L Chloride (98-107) mmol/L Carbon Dioxide (21.0-32.0) mmol/L Anion Gap (5.0-15.0) mmol/L BUN (8-26) mg/dL Creatinine (0.55-1.02) mg/dL Est Cr Clr Drug Dosing Estimated GFR (MDRD) (>60) MLS/MIN BUN/Creatinine Ratio (6-25) Glucose (74-100) mg/dL Calcium (8.5-10.1) mg/dL Total Bilirubin (0.0-1.0) mg/dL AST (15-37) U/L ALT (12-78) U/L Alkaline Phosphatase (46-116) U/L Total Protein (6.4-8.2) g/dL Albumin (3.4-5.0) g/dL Globulin (2.2-4.2) g/dL Albumin/Globulin Ratio (0.8-2.0) TSH, Ultra Sensitive (0.358-3.740) uIU/mL Urine Color Yellow Urine Appearance Clear (CLEAR) Urine pH 5.5 (5.0-8.0) Ur Specific [place] 1.010 (1.003-1.030) Urine Protein Negative (NEGATIVE) mg/dL Urine Glucose (UA) Negative (NEGATIVE) mg/dL Urine Ketones Negative (NEGATIVE) mg/dL Urine Occult Blood Negative (NEGATIVE) Urine Nitrite Negative (NEGATIVE) Urine Bilirubin Negative (NEGATIVE) Urine Urobilinogen 0.2 (0.2-1.0) E.U./dL Ur Leukocyte Esterase Negative (NEGATIVE) Urine RBC Not seen /HPF Urine WBC 0-5 H /HPF Ur Squamous Epith Cells Moderate /HPF Urine Bacteria Occasional /HPF Salicylates 3.1 (2.8-20.0) mg/dL Urine Opiates Screen Negative (NEGATIVE) Ur Oxycodone Screen Negative (NEGATIVE) Urine Methadone Screen Negative (NEGATIVE) Acetaminophen ug/mL Ur Barbiturates Screen Negative (NEGATIVE) Ur Tricyclics Screen Negative (NEGATIVE) Ur Phencyclidine Scrn Negative (NEGATIVE) Ur Amphetamine Screen Negative (NEGATIVE) U Methamphetamines Scrn Negative (NEGATIVE) Urine MDMA Screen Negative (NEGATIVE) U Benzodiazepines Scrn Negative (NEGATIVE) U Cocaine Metab Screen Negative (NEGATIVE) U Marijuana (THC) Screen Negative (NEGATIVE) Ethyl Alcohol (<3.0) mg/dL Medications Discontinued Medications Generic Name Dose Route Start Last Admin Trade Name Freq PRN Reason Stop Dose Admin Sodium Chloride 1,000 mls @ 999 mls/hr 06/01/21 22:11 06/01/21 23:10 Normal Saline IV 06/01/21 23:11 Infused .BOLUS ONE Infusion Lorazepam 1 mg 06/01/21 22:11 06/01/21 22:05 Lorazepam 1 Mg Tab PO 06/01/21 22:12 1 mg ONETIME ONE Administration Nicotine 21 mg 06/02/21 03:09 06/01/21 23:15 Nicotine 21 Mg/24 Hr Patch TRDERM 06/02/21 03:10 21 mg ONETIME ONE Administration She was given Ativan 1 mg PO to calm down. This did make her drowsy. Poison control was contacted and gave instructions to deal with the overdose. Re-Assessment/Re-Exam: Pt became drowsy and was sleeping mostly. We arranged for a mental health evaluation with [facility]. I did discuss her case then with Abimael from [facility]. We both feel she can safely be treated as an outpt. She does have an appt today in the clinic. Pt's Mom will stay with her, and remove any pills from her home. The pt needs ongoing cares including therapy, and a change in her meds. The pt is sleeping quietly at this time, and I discussed the tx measures with her Mom who agree's. Departure - Departure Time of Disposition: 03:00 Disposition: Home, Self-Care 01 Condition: Good Clinical Impression: Overdose Qualifiers: Encounter type: initial encounter Injury intent: intentional self-harm Qualified Code(s): T50.902A - Poisoning by unspecified drugs, medicaments and b iological substances, intentional self-harm, initial encounter - Discharge Information *PRESCRIPTION DRUG MONITORING PROGRAM REVIEWED*: Yes *COPY OF PRESCRIPTION DRUG MONITORING REPORT IN PATIENT NAKIA: Yes Instructions: Persistent Depressive Disorder, Adult, [id number] Referrals: PCP,None [Primary Care Provider] - Forms: ED Department Discharge Additional Instructions: Follow up as discussed with the provider that manages your depression and medications.
== END 2021-06-02 03:45 | disposition home or self-care (01) ==
LOC: LB.ED 21:35
DX: T43.592A Poisoning by other antipsychotics and neuroleptics, intentional self-harm, initial encounter (principal); R00.0 Tachycardia, unspecified; Z88.2 Allergy status to sulfonamides; Z79.899 Other long term (current) drug therapy
CPT/HCPCS: 36415; 80053; 80143; 80179; 80307; 81001; 84443; 85025; 93005; 99284-25; A9270-GY; J7030

== ENCOUNTER 2021-06-24 15:54 | Emergency (ER) | payer BC ==
[2021-06-24] MEDS ORDERED: Ketorolac 30 MG/ML SDV ONE (15:55)
[2021-06-24] MEDS ORDERED: Ketorolac 30 MG/ML SDV IM ONE (15:55)
--- NOTE | 2021-06-24 16:34 | EDM.PDOC ---
ED HPI GENERAL MEDICAL PROBLEM - General Chief Complaint: Upper Extremity Injury/Pain Stated Complaint: shoulder pain Time Seen by Provider: 06/24/21 16:00 Source of Information: Reports: Patient History Limitations: Reports: No Limitations - History of Present Illness INITIAL COMMENTS - FREE TEXT/NARRATIVE: 30-year-old female presents to the ED complaining of right shoulder pain with decreased range of motion. Patient had a gradual onset mid day approximately 2 days ago. There were no traumatic events that led up to pain. 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 Patient describes the pain as a knife/sharp superior midline deltoid. Nothing has improved her pain. Movement makes the pain worse. Patient's lower right neck is slightly stiff. 8/10 on the pain scale. Patient denies chest pain, shortness of breath, syncope/near syncope, nausea vomiting, constipation diarrhea, difficulty swallowing, rash, red swollen joints, easy bruising, headache, abdominal pain or trauma. Right Shoulder Pain Score (Numeric/FACES): 10 - Related Data Allergies Allergy/AdvReac Type Severity Reaction Status Date / Time Sulfa Allergy Mild Other Uncoded 04/24/21 06:11 Home Meds: Home Meds Escitalopram [Lexapro] 20 mg PO DAILY 01/26/21 [History] busPIRone [Buspar] 7.5 mg PO BID 01/26/21 [History] ARIPiprazole [Abilify] 10 mg PO DAILY 02/23/21 [History] FLUoxetine HCl [Prozac] 20 mg PO DAILY 04/16/21 [History] Past Medical History - Past Health History Medical/Surgical History: Denies Medical/Surgical History Cardiovascular History: Reports: None Respiratory History: Reports: None Gastrointestinal History: Reports: None Genitourinary History: Reports: UTI, Recurrent TOBACCO STRIPPER History: Reports: 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, Other (See Below) Other TOBACCO STRIPPER History: miscarriage Musculoskeletal History: Reports: Fracture, Other (See Below) Other Musculoskeletal History: L foot fx of 8 bones with hardware in 2014 Neurological History: Reports: None Psychiatric History: Reports: Anxiety, Depression, Suicidal Ideation Endocrine/Metabolic History: Reports: None Hematologic History: Reports: None Oncologic (Cancer) History: Reports: None Dermatologic History: Reports: None - Infectious Disease History Infectious Disease History: Reports: Chicken Pox, Mumps - Past Surgical History Head Surgeries/Procedures: Reports: None GI Surgical History: Reports: Appendectomy Female Surgical History: Reports: Cystectomy, Other (See Below) Other Female Surgeries/Procedures: surgery for endometriosos; cyst removal from R ovary Musculoskeletal Surgical History: Reports: ORIF Social & Family History - Family History Family Medical History: No Pertinent Family History - Tobacco Use Tobacco Use Status *Q: Former Tobacco User Used Tobacco, but Quit: Yes Month/Year Tobacco Last Used: 11/2020 - Caffeine Use Caffeine Use: Reports: Coffee, Soda Other Caffeine Use: one soda a day, 2 cups coffee daily Review of Systems - Review of Systems Review Of Systems: Comprehensive ROS is negative, except as noted in HPI. ED EXAM, GENERAL - Physical Exam Exam: See Below Free Text/Narrative:: ABC intact. No apparent distress. No obvious trauma. Speaking in full sentences. Alert and oriented x3, GCS 456. Exam Limited By: No Limitations General Appearance: Alert, WD/WN, No Apparent Distress Eye Exam: Bilateral Eye: EOMI, PERRL Nose: Normal Inspection, Normal Mucosa, No Blood Head: Atraumatic, Normocephalic Neck: Normal Inspection, Supple, Full Range of Motion, Tender Lateral (Right lower trapezius). No: Limited Range of Motion, Lymphadenopathy (R), Lymphadenopathy (L), Tender Midline Respiratory/Chest: No Respiratory Distress, Lungs Clear, Normal Breath Sounds, No Accessory Muscle Use, Chest Non-Tender Cardiovascular: Normal Peripheral Pulses, Regular Rate, Rhythm, No Edema, No Gallop, No JVD, No Murmur, No Rub Back Exam: Normal Inspection, Full Range of Motion. 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) Neurological: Alert, Oriented, Normal Cognition Psychiatric: Normal Affect, Normal Mood Skin Exam: Warm, Dry, Intact, Normal Color, No Rash Course - Vital Signs Last Recorded V/S: Last Vital Signs Temp 98.1 F 06/24/21 16:01 Pulse 117 H 06/24/21 16:01 Resp 16 06/24/21 16:01 BP 126/81 06/24/21 16:01 Pulse Ox 97 06/24/21 16:01 Departure - Departure Time of Disposition: 16:25 Disposition: Home, Self-Care 01 Condition: Good Clinical Impression: Impingement syndrome of right shoulder - Discharge Information *PRESCRIPTION DRUG MONITORING PROGRAM REVIEWED*: No *COPY OF PRESCRIPTION DRUG MONITORING REPORT IN PATIENT NAKIA: No Referrals: PCP,Unknown [Primary Care Provider] - Sepsis Event Note (ED) - Evaluation Sepsis Screening Result: No Definite Risk - Focused Exam Vital Signs: Vital Signs Temp Pulse Resp BP Pulse Ox 06/24/21 16:01 98.1 F 117 H 16 126/81 97 - Assessment/Plan Assessment:: 30-year-old female presents to the ED complaining of right shoulder pain. Patient's history, age, lack of cardiac issues, and presentation consistent with shoulder impingement syndrome. Patient's lack of cardiac history, reproducible pain with movement and palpation, and events leading up make minus suspicion for cardiac etiology extremely low. Patient discomfort responded well to ketorolac 30 mg IM, based on the response treatment plan will be as follows: Plan: ABC, history, exam, ketorolac 30 mg IM, patient observation, based on response patient will take ibuprofen 800 mg 3 times a day for 3 days then return to dosing regimen on the site of bottle. Patient to follow-up with primary care provider or orthopedics for shoulder assessment. 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 -All questions were answered to the patient's satisfaction. -Patient is discharged in stable condition. Patient to return to the ED if symptoms increase, shoulder becomes red, hot, or patient develops fevers. Follow-up with primary care provider within 2 weeks.
== END 2021-06-24 16:15 | disposition home or self-care (01) ==
LOC: LB.ED 15:54
DX: M75.41 Impingement syndrome of right shoulder (principal); Z88.2 Allergy status to sulfonamides; Z87.891 Personal history of nicotine dependence
CPT/HCPCS: 96372; 99283; J1885

== ENCOUNTER 2021-11-06 02:43 | Emergency (ER) | payer MEDICAID ==
[2021-11-06] MEDS ORDERED: Ciprofloxacin 0.3% Ophth Soln 2.5 ML Bottle ONE (03:00)
[2021-11-06] MEDS ORDERED: Hydrocortisone/Neomycin/Polymyxin B Otic Susp 10 ML Bottle ONE (03:00)
== END 2021-11-06 03:10 | disposition home or self-care (01) ==
LOC: LB.ED 02:43 → MERGE 02:43 → LB.ED 03:10
DX: H60.332 Swimmer's ear, left ear (principal); H10.33 Unspecified acute conjunctivitis, bilateral; Z88.2 Allergy status to sulfonamides
CPT/HCPCS: 99282; A9270; 99281

== ENCOUNTER 2022-01-23 16:27 | Emergency (ER) | payer BC, MEDICAID ==
[2022-01-23] MEDS ORDERED: LORazepam 2 MG/ML SDV IM ONE (16:40)
[2022-01-23] MEDS ORDERED: LORazepam 2 MG/ML SDV ONE (16:49)
[2022-01-23 17:20] LABS: ESTIMATED GFR 79 mL/min (>60)
[2022-01-23] MEDS ORDERED: LORazepam 1 MG Tab ONE ×3 (17:40→17:52)
== END 2022-01-23 17:46 | disposition home or self-care (01) ==
LOC: LB.ED 16:27
DX: F41.9 Anxiety disorder, unspecified (principal); Z88.2 Allergy status to sulfonamides; Z79.899 Other long term (current) drug therapy; Z90.49 Acquired absence of other specified parts of digestive tract
CPT/HCPCS: 36415; 80053; 80307; 85025; 96372; 99283; A9270; J2060; 99281

== ENCOUNTER 2022-02-18 16:08 | Emergency (ER) | payer MEDICAID ==
[2022-02-18] MEDS ORDERED: HYDROmorphone 2 MG/ML Syringe IVPUSH ONE ×2 (16:35→17:02)
[2022-02-18 16:36] VITALS: BP 132/83; PULSE 98
[2022-02-18] MEDS ORDERED: Ketorolac 30 MG/ML SDV IVPUSH ONE (18:25)
[2022-02-18] MEDS ORDERED: Acetaminophen/HYDROcodone 325-5 MG Tab ONE (18:30)
[2022-02-18] MEDS ORDERED: Ketorolac 30 MG/ML SDV ONE (18:37)
== END 2022-02-18 18:40 | disposition home or self-care (01) ==
LOC: LB.ED 16:08
DX: R10.32 Left lower quadrant pain (principal); F17.210 Nicotine dependence, cigarettes, uncomplicated; Z88.2 Allergy status to sulfonamides
CPT/HCPCS: 36415; 74176; 80053; 81001; 81025; 85025; 96374; 96375; 99282; 99284-25; A9270-GY; J1170; J1885

== ENCOUNTER 2022-05-20 07:00 | Emergency (ER) | payer MEDICAID | END 2022-05-20 08:00 | disposition home or self-care (01) | LOC: LB.ED 07:00 | DX: N39.0 Urinary tract infection, site not specified (principal); Z88.2 Allergy status to sulfonamides; Z79.899 Other long term (current) drug therapy; Z90.49 Acquired absence of other specified parts of digestive tract | CPT/HCPCS: 81001; 99283 ==

== ENCOUNTER 2022-06-02 07:44 | Emergency (ER) | payer MEDICAID ==
[2022-06-02] MEDS ORDERED: Acetaminophen/oxyCODONE 325-5 MG Tab ONE (08:15)
== END 2022-06-02 08:30 | disposition home or self-care (01) ==
LOC: LB.ED 07:44
DX: K62.89 Other specified diseases of anus and rectum (principal); Z88.2 Allergy status to sulfonamides
CPT/HCPCS: 99283; A9270

== ENCOUNTER 2022-11-02 10:01 | Emergency (ER) | payer MEDICAID ==
[2022-11-02] MEDS ORDERED: Ondansetron 4 MG Tab.DIS ONE (10:30)
[2022-11-02] MEDS: Ondansetron 4 MG Tab.DIS PO ONE (10:30)
[2022-11-02] MEDS: Sodium Chloride 0.9% 1,000 ML IV ONE (10:33)
[2022-11-02] MEDS: Ondansetron 4 MG Tab.DIS ONE (10:44)
[2022-11-02] MEDS: Pantoprazole 40 MG Vial IVPUSH ONE ×2 (10:56→10:57)
[2022-11-02 10:59] LABS: ESTIMATED GFR 72 mL/min (>60)
[2022-11-02] MEDS: Pantoprazole 40 MG Vial ONE (11:24)
== END 2022-11-02 11:40 | disposition home or self-care (01) ==
LOC: LB.ED 10:01
DX: R11.2 Nausea with vomiting, unspecified (principal); T42.8X5A Adverse effect of antiparkinsonism drugs and other central muscle-tone depressants, initial encounter; Z88.2 Allergy status to sulfonamides
CPT/HCPCS: 36415; 80053; 85025; 96361; 96374; 99283; 99284-25; C9113; J7030; Q0162

== ENCOUNTER 2022-11-11 12:45 | Emergency (ER) | payer MEDICAID ==
[2022-11-11] MEDS ORDERED: Ketorolac 60 MG/2 ML SDV IM ONE (13:04)
[2022-11-11] MEDS ORDERED: Orphenadrine 60 MG/2 ML Inj IM ONE (13:44)
== END 2022-11-11 14:30 | disposition home or self-care (01) ==
LOC: LB.ED 12:45
DX: G44.209 Tension-type headache, unspecified, not intractable (principal); Z88.2 Allergy status to sulfonamides
CPT/HCPCS: 96372; 99283; J1885; J2360

== ENCOUNTER 2022-12-30 22:43 | Emergency (ER) | payer MEDICAID ==
[2022-12-30] MEDS ORDERED: Acetaminophen/oxyCODONE 325-5 MG Tab ONE (23:00)
[2022-12-30] MEDS ORDERED: Ketorolac 30 MG/ML SDV IVPUSH ONE (23:06)
[2022-12-30] MEDS ORDERED: HYDROmorphone 2 MG/ML Syringe IVPUSH ONE ×2 (23:10→23:28)
[2022-12-30 23:15] LABS: BASOPHILS ABSOLUTE AUTO 0.04 K/uL (0.02-0.10); BASOPHILS PERCENT AUTO 0.3 % (0.0-0.5); EOSINOPHILS PERCENT AUTO 1.6 % (1.0-5.0); HEMOGLOBIN 12.9 g/dL (11.5-16.5); LYMPHOCYTES ABSOLUTE AUTO 5.53 K/uL (1.50-4.00); LYMPHOCYTES PERCENT AUTO 44.1 % (20.0-40.0); MEAN CORPUSCULAR HEMOGLOBIN 30.1 pg (27.0-32.0); MEAN CORPUSCULAR HGB CONC 33.1 g/dL (31.0-35.0); MEAN CORPUSCULAR VOLUME 91 fL (76-96); MEAN PLATELET VOLUME 9.9 fL (6.0-10.0); MONOCYTES ABSOLUTE AUTO 1.11 K/uL (0.20-0.80); MONOCYTES PERCENT AUTO 8.9 % (3.0-10.0); NEUTROPHILS ABSOLUTE AUTO 5.66 K/uL (2.00-7.50); NEUTROPHILS PERCENT AUTO 45.1 % (45.0-70.0); PLATELET COUNT,PLT 389 K/uL (150-500); RED BLOOD CELL COUNT 4.29 M/uL (3.80-5.80); RED CELL DISTRIBUTION WIDTH 13.8 % (11.0-16.0); WHITE BLOOD CELL COUNT,WBC 12.5 K/uL (4.0-11.0)
[2022-12-30 23:21] LABS: APPEARANCE,URINE CLEAR (CLEAR); BILIRUBIN,URINE NEGATIVE (NEGATIVE); COLOR,URINE YELLOW; GLUCOSE,URINE NEGATIVE (NEGATIVE); KETONES,URINE NEGATIVE (NEGATIVE); LEUKOCYTE ESTERASE,URINE NEGATIVE (NEGATIVE); NITRITE,URINE NEGATIVE (NEGATIVE); OCCULT BLOOD,URINE NEGATIVE (NEGATIVE); PROTEIN,URINE NEGATIVE (NEGATIVE); UROBILINOGEN,URINE 0.2 E.U./dL (0.2-1.0)
[2022-12-30 23:31] LABS: BACTERIA,URINE OCCASIONAL /HPF; RBC,URINE NOT SEEN /HPF; SQUAMOUS EPITHELIAL CELLS,UR MODERATE /HPF; WBC,URINE 0-5 /HPF
[2022-12-30 23:32] LABS: ANION GAP 14.1 mmol/L (5.0-15.0); BUN/CREATININE RATIO 8.6 (6-25); CALCIUM 8.7 mg/dL (8.5-10.1); CARBON DIOXIDE,CO2 24.8 mmol/L (21.0-32.0); CREATININE 1.16 mg/dL (0.55-1.02); EST CRCL DRUG DOSING (CG) 70.88 mL/min; POTASSIUM,K 3.9 mmol/L (3.5-5.1)
== END 2022-12-31 01:21 | disposition home or self-care (01) ==
LOC: LB.ED 22:43
DX: R10.32 Left lower quadrant pain (principal); Z88.2 Allergy status to sulfonamides; Z90.89 Acquired absence of other organs
CPT/HCPCS: 36415; 74176; 80048; 81001; 81025; 85025; 96374; 96375; 96376; 99284; A9270; J1170; J1885

== ENCOUNTER 2023-01-11 10:02 | Emergency (ER) | payer MEDICAID ==
[2023-01-11] MEDS ORDERED: Ketorolac 60 MG/2 ML SDV ONE (10:20)
[2023-01-11] MEDS: Ketorolac 60 MG/2 ML SDV IM ONE ×3 (10:34→10:38)
[2023-01-11 11:00] LABS: APPEARANCE,URINE CLEAR (CLEAR); BILIRUBIN,URINE NEGATIVE (NEGATIVE); COLOR,URINE YELLOW; GLUCOSE,URINE NEGATIVE (NEGATIVE); KETONES,URINE NEGATIVE (NEGATIVE); LEUKOCYTE ESTERASE,URINE NEGATIVE (NEGATIVE); NITRITE,URINE NEGATIVE (NEGATIVE); OCCULT BLOOD,URINE NEGATIVE (NEGATIVE); PH,URINE 5.5 (5.0-8.0); PROTEIN,URINE NEGATIVE (NEGATIVE); UROBILINOGEN,URINE 0.2 E.U./dL (0.2-1.0)
[2023-01-11 11:04] LABS: RBC,URINE NOT SEEN /HPF; WBC,URINE 0-5 /HPF
[2023-01-11 11:05] LABS: BACTERIA,URINE OCCASIONAL /HPF; SQUAMOUS EPITHELIAL CELLS,UR FEW /HPF
[2023-01-11] MEDS: HYDROmorphone 2 MG/ML Syringe SUBCUT SCH ×2 (11:13→11:14)
== END 2023-01-11 12:30 | disposition home or self-care (01) ==
LOC: LB.ED 10:02
DX: R10.32 Left lower quadrant pain (principal); E11.9 Type 2 diabetes mellitus without complications; Z88.2 Allergy status to sulfonamides
CPT/HCPCS: 81001; 96372; 99284; J1170; J1885

== ENCOUNTER 2023-02-05 17:37 | Emergency (ER) | payer MEDICAID ==
[2023-02-05 17:58] VITALS: BP 142/94; PULSE 92
[2023-02-05] MEDS: HYDROmorphone 2 MG/ML Syringe IM ONE (18:14)
[2023-02-05] MEDS: Ketorolac 60 MG/2 ML SDV IM ONE (18:17)
[2023-02-05] MEDS: HYDROmorphone 2 MG/ML Syringe ONE (18:24)
[2023-02-05] MEDS: Ketorolac 60 MG/2 ML SDV ONE (18:24)
== END 2023-02-05 18:40 | disposition home or self-care (01) ==
LOC: LB.ED 17:37
DX: M25.511 Pain in right shoulder (principal); G89.29 Other chronic pain; Z88.2 Allergy status to sulfonamides
CPT/HCPCS: 96372; 99283; J1170; J1885

== ENCOUNTER 2023-04-20 01:13 | Emergency (ER) | payer MEDICAID ==
[2023-04-20] MEDS ORDERED: Nystatin Crm 30 GM Tube ONE (02:00)
[2023-04-20] MEDS ORDERED: Hydrocortisone/Neomycin/Polymyxin B Otic Susp 10 ML Bottle ONE (02:00)
[2023-04-20] MEDS ORDERED: Hydrocortisone Acetate 1% Crm 30 GM Tube ONE (02:00)
== END 2023-04-20 02:02 | disposition home or self-care (01) ==
LOC: LB.ED 01:13
DX: H60.332 Swimmer's ear, left ear (principal); H60.92 Unspecified otitis externa, left ear; B37.9 Candidiasis, unspecified; E11.8 Type 2 diabetes mellitus with unspecified complications; F17.210 Nicotine dependence, cigarettes, uncomplicated; Z88.2 Allergy status to sulfonamides; Z79.899 Other long term (current) drug therapy
CPT/HCPCS: 82947; 99282; A9270; 93010; 99283

== ENCOUNTER 2023-05-02 10:30 | Emergency (ER) | payer MEDICAID ==
[2023-05-02] MEDS ORDERED: Bacitracin Oint 1 GM U/D Packet TOP ONE (12:02)
== END 2023-05-02 11:30 | disposition home or self-care (01) ==
LOC: LB.ED 10:30
DX: S60.051A Contusion of right little finger without damage to nail, initial encounter (principal); Z88.2 Allergy status to sulfonamides; Z88.8 Allergy status to other drugs, medicaments and biological substances; W23.0XXA Caught, crushed, jammed, or pinched between moving objects, initial encounter
CPT/HCPCS: 73140-F9; 99283

== ENCOUNTER 2023-11-08 13:17 | Emergency (ER) | payer MEDICAID ==
[2023-11-08 13:37] LABS: APPEARANCE,URINE CLEAR (CLEAR); BILIRUBIN,URINE NEGATIVE (NEGATIVE); COLOR,URINE YELLOW; GLUCOSE,URINE NEGATIVE (NEGATIVE); KETONES,URINE 40 mg/dL (NEGATIVE); LEUKOCYTE ESTERASE,URINE NEGATIVE (NEGATIVE); NITRITE,URINE NEGATIVE (NEGATIVE); OCCULT BLOOD,URINE NEGATIVE (NEGATIVE); PROTEIN,URINE NEGATIVE (NEGATIVE); UROBILINOGEN,URINE 0.2 E.U./dL (0.2-1.0)
== END 2023-11-08 15:37 | disposition home or self-care (01) ==
LOC: LB.ED 13:17
DX: O23.599 Infection of other part of genital tract in pregnancy, unspecified trimester (principal); B37.31 Acute candidiasis of vulva and vagina; F17.210 Nicotine dependence, cigarettes, uncomplicated; Z88.2 Allergy status to sulfonamides; Z88.8 Allergy status to other drugs, medicaments and biological substances; Z79.899 Other long term (current) drug therapy; Z86.19 Personal history of other infectious and parasitic diseases
CPT/HCPCS: 81003; 87210; 99283

== ENCOUNTER 2024-02-09 06:19 | Emergency (ER) | payer MEDICAID ==
[2024-02-09 07:34] LABS: APPEARANCE,URINE SLIGHTLY CLOUDY (CLEAR); BILIRUBIN,URINE NEGATIVE (NEGATIVE); COLOR,URINE YELLOW; GLUCOSE,URINE NEGATIVE (NEGATIVE); KETONES,URINE NEGATIVE (NEGATIVE); LEUKOCYTE ESTERASE,URINE NEGATIVE (NEGATIVE); NITRITE,URINE NEGATIVE (NEGATIVE); OCCULT BLOOD,URINE NEGATIVE (NEGATIVE); PROTEIN,URINE NEGATIVE (NEGATIVE); UROBILINOGEN,URINE 0.2 E.U./dL (0.2-1.0)
== END 2024-02-09 08:03 ==
LOC: LB.ED 06:19 → SUPCPDRO 06:19 → LB.ED 08:03
DX: O26.893 Other specified pregnancy related conditions, third trimester (principal); E66.9 Obesity, unspecified; F17.210 Nicotine dependence, cigarettes, uncomplicated; Z88.2 Allergy status to sulfonamides; Z88.8 Allergy status to other drugs, medicaments and biological substances; Z79.899 Other long term (current) drug therapy; Z90.49 Acquired absence of other specified parts of digestive tract; Z68.35 Body mass index [BMI] 35.0-35.9, adult; Z3A.28 28 weeks gestation of pregnancy
CPT/HCPCS: 81003; 99284

== ENCOUNTER 2024-05-07 16:14 | Emergency (ER) | payer MEDICAID ==
[2024-05-07 17:19] LABS: BASOPHILS ABSOLUTE AUTO 0.03 K/uL (0.02-0.10); BASOPHILS PERCENT AUTO 0.2 % (0.0-0.5); EOSINOPHILS PERCENT AUTO 1.4 % (1.0-5.0); HEMATOCRIT 35.5 % (37.0-47.0); HEMOGLOBIN 11.8 g/dL (11.5-16.5); LYMPHOCYTES ABSOLUTE AUTO 2.98 K/uL (1.50-4.00); LYMPHOCYTES PERCENT AUTO 21.4 % (20.0-40.0); MEAN CORPUSCULAR HEMOGLOBIN 29.9 pg (27.0-32.0); MEAN CORPUSCULAR HGB CONC 33.2 g/dL (31.0-35.0); MEAN CORPUSCULAR VOLUME 90 fL (76-96); MEAN PLATELET VOLUME 9.8 fL (6.0-10.0); MONOCYTES PERCENT AUTO 6.5 % (3.0-10.0); NEUTROPHILS ABSOLUTE AUTO 9.83 K/uL (2.00-7.50); NEUTROPHILS PERCENT AUTO 70.5 % (45.0-70.0); PLATELET COUNT,PLT 322 K/uL (150-500); RED BLOOD CELL COUNT 3.94 M/uL (3.80-5.80); RED CELL DISTRIBUTION WIDTH 13.4 % (11.0-16.0); WHITE BLOOD CELL COUNT,WBC 13.9 K/uL (4.0-11.0)
[2024-05-07] MEDS: Sodium Chloride 0.9% 50 ML SDV FLUSH ONE (17:31)
[2024-05-07] MEDS: Iopamidol 612 MG/ML 100 ML Bottle IV SCH (17:32)
[2024-05-07 17:39] LABS: A/G RATIO 0.7 (0.8-2.0); ALBUMIN 2.4 g/dL (3.4-5.0); ANION GAP 13.9 mmol/L (5.0-15.0); BILIRUBIN TOTAL 0.2 mg/dL (0.0-1.0); BUN/CREATININE RATIO 14.1 (6-25); CALCIUM 8.6 mg/dL (8.5-10.1); CARBON DIOXIDE,CO2 25.8 mmol/L (21.0-32.0); CREATININE 0.78 mg/dL (0.55-1.02); EST CRCL DRUG DOSING (CG) 104.45 mL/min; POTASSIUM,K 3.7 mmol/L (3.5-5.1)
[2024-05-07] MEDS: HYDROmorphone 2 MG/ML Syringe IVPUSH ONE ×2 (17:46→18:46)
[2024-05-07] MEDS: HYDROmorphone 2 MG/ML Syringe ONE ×2 (17:47→19:39)
[2024-05-07 17:51] LABS: APPEARANCE,URINE CLOUDY (CLEAR); BILIRUBIN,URINE NEGATIVE (NEGATIVE); COLOR,URINE OTHER; GLUCOSE,URINE NEGATIVE (NEGATIVE); KETONES,URINE NEGATIVE (NEGATIVE); PROTEIN,URINE 100 mg/dL (NEGATIVE)
[2024-05-07 17:52] LABS: LEUKOCYTE ESTERASE,URINE LARGE (NEGATIVE); NITRITE,URINE NEGATIVE (NEGATIVE); OCCULT BLOOD,URINE LARGE (NEGATIVE); RBC,URINE 0-5 /HPF; UROBILINOGEN,URINE 0.2 E.U./dL (0.2-1.0); WBC CLUMPS,URINE FEW /HPF; WBC,URINE >100 /HPF
[2024-05-07 17:52] LABS: PTT,PARTIAL THROMBOPLSTIN TIME 27.1 SECONDS (24.4-33.2)
[2024-05-07 17:53] LABS: AMORPHOUS SEDIMENT,URINE MODERATE /HPF; BACTERIA,URINE FEW /HPF; SQUAMOUS EPITHELIAL CELLS,UR MODERATE /HPF
[2024-05-07 17:54] LABS: PROTHROMBIN TIME 10.2 sec (9.0-11.5)
[2024-05-07] MEDS: LORazepam 0.5 MG Tab PO ONE (19:30)
[2024-05-08] MEDS: LORazepam 2 MG/ML SDV ONE (09:36)
[2024-05-09 23:10] LABS: FIBRINOGEN 524 mg/dL (150-430)
== END 2024-05-07 21:35 ==
LOC: LB.ED 16:14
DX: G44.209 Tension-type headache, unspecified, not intractable (principal); E66.9 Obesity, unspecified; F17.210 Nicotine dependence, cigarettes, uncomplicated; Z90.49 Acquired absence of other specified parts of digestive tract; Z79.899 Other long term (current) drug therapy; Z88.2 Allergy status to sulfonamides; Z91.048 Other nonmedicinal substance allergy status; Z68.33 Body mass index [BMI] 33.0-33.9, adult
CPT/HCPCS: 36415; 70450; 74177; 80053; 81001; 83605; 83690; 85025; 85384; 85610; 85730; 87086; 96374; 96376; 99285; 99285-25; A0425; A0428; A9270-GY; J1171; J3490; Q9967

== ENCOUNTER 2024-05-19 04:56 | Emergency (ER) | payer MEDICAID ==
[2024-05-19 05:48] LABS: APPEARANCE,URINE CLEAR (CLEAR); BILIRUBIN,URINE NEGATIVE (NEGATIVE); COLOR,URINE YELLOW; GLUCOSE,URINE NEGATIVE (NEGATIVE); KETONES,URINE NEGATIVE (NEGATIVE); PH,URINE 5.5 (5.0-8.0); PROTEIN,URINE NEGATIVE (NEGATIVE)
[2024-05-19 05:49] LABS: LEUKOCYTE ESTERASE,URINE NEGATIVE (NEGATIVE); NITRITE,URINE NEGATIVE (NEGATIVE); OCCULT BLOOD,URINE NEGATIVE (NEGATIVE); UROBILINOGEN,URINE 0.2 E.U./dL (0.2-1.0)
[2024-05-19 06:00] LABS: HEMATOCRIT 39.9 % (37.0-47.0); HEMOGLOBIN 13.1 g/dL (11.5-16.5); MEAN CORPUSCULAR HEMOGLOBIN 29.8 pg (27.0-32.0); MEAN CORPUSCULAR HGB CONC 32.8 g/dL (31.0-35.0); MEAN PLATELET VOLUME 9.7 fL (6.0-10.0); RED BLOOD CELL COUNT 4.39 M/uL (3.80-5.80); RED CELL DISTRIBUTION WIDTH 13.6 % (11.0-16.0); WHITE BLOOD CELL COUNT,WBC 9.2 K/uL (4.0-11.0)
[2024-05-19 06:10] LABS: ANION GAP 12.9 mmol/L (5.0-15.0); BUN/CREATININE RATIO 13.5 (6-25); CALCIUM 8.4 mg/dL (8.5-10.1); CARBON DIOXIDE,CO2 28.4 mmol/L (21.0-32.0); CREATININE 0.96 mg/dL (0.55-1.02); EST CRCL DRUG DOSING (CG) 84.87 mL/min; MAGNESIUM 1.8 mg/dL (1.8-2.4); POTASSIUM,K 4.3 mmol/L (3.5-5.1)
[2024-05-19 06:30] VITALS: BP 119/76; PULSE 68
== END 2024-05-19 06:20 | disposition home or self-care (01) ==
LOC: LB.ED 04:56
DX: R33.9 Retention of urine, unspecified (principal); Z90.49 Acquired absence of other specified parts of digestive tract; Z79.899 Other long term (current) drug therapy; Z88.2 Allergy status to sulfonamides
CPT/HCPCS: 36415; 80048; 81003; 83735; 85027; 99284; C1758

== ENCOUNTER 2024-06-30 21:55 | Emergency (ER) | payer MEDICAID ==
[2024-06-30] MEDS ORDERED: Sodium Chloride 0.9% 10 ML Syringe FLUSH PRN (22:25)
[2024-06-30] MEDS: Morphine 4 MG/ML VIAL IVPUSH ONE (22:34)
[2024-06-30 22:48] LABS: HEMATOCRIT 38.3 % (37.0-47.0); HEMOGLOBIN 12.7 g/dL (11.5-16.5); MEAN CORPUSCULAR HGB CONC 33.2 g/dL (31.0-35.0); MEAN PLATELET VOLUME 9.7 fL (6.0-10.0); RED BLOOD CELL COUNT 4.23 M/uL (3.80-5.80); RED CELL DISTRIBUTION WIDTH 14.4 % (11.0-16.0); WHITE BLOOD CELL COUNT,WBC 10.1 K/uL (4.0-11.0)
[2024-06-30 22:50] LABS: APPEARANCE,URINE CLEAR (CLEAR); BILIRUBIN,URINE NEGATIVE (NEGATIVE); COLOR,URINE YELLOW; GLUCOSE,URINE NEGATIVE (NEGATIVE); KETONES,URINE NEGATIVE (NEGATIVE); LEUKOCYTE ESTERASE,URINE NEGATIVE (NEGATIVE); NITRITE,URINE NEGATIVE (NEGATIVE); OCCULT BLOOD,URINE NEGATIVE (NEGATIVE); PROTEIN,URINE NEGATIVE (NEGATIVE); UROBILINOGEN,URINE 0.2 E.U./dL (0.2-1.0)
[2024-06-30] MEDS: Morphine 4 MG/ML VIAL ONE (22:50)
[2024-06-30 23:04] LABS: ALANINE AMINOTRANSFERASE,ALT 37 U/L (12-78); ALBUMIN 3.4 g/dL (3.4-5.0); ALKALINE PHOSPHATASE 92 U/L (46-116); ANION GAP 13.3 mmol/L (5.0-15.0); ASPARTATE AMNIOTRANSFERASE,AST 21 U/L (15-37); BILIRUBIN TOTAL 0.2 mg/dL (0.0-1.0); BLOOD UREA NITROGEN,BUN 13 mg/dL (8-26); BUN/CREATININE RATIO 13.8 (6-25); CALCIUM 8.7 mg/dL (8.5-10.1); CARBON DIOXIDE,CO2 27.5 mmol/L (21.0-32.0); CHLORIDE,CL 107 mmol/L (98-107); CREATININE 0.94 mg/dL (0.55-1.02); EST CRCL DRUG DOSING (CG) 86.67 mL/min; ESTIMATED GFR 83 mL/min (>60); GLUCOSE RANDOM 93 mg/dL (74-100); POTASSIUM,K 3.8 mmol/L (3.5-5.1); PROTEIN TOTAL,TP 6.7 g/dL (6.4-8.2); SODIUM,NA 144 mmol/L (136-145)
[2024-06-30 23:14] LABS: C-REACTIVE PROTEIN < 5.0 mg/L (<5.0)
[2024-06-30] MEDS: Ketorolac 15 MG/ML SDV IM ONE (23:32)
[2024-06-30] MEDS: Ketorolac 30 MG/ML SDV ONE (23:37)
[2024-06-30] MEDS: Iopamidol 612 MG/ML 100 ML Bottle IV SCH (23:54)
[2024-06-30] MEDS: Sodium Chloride 0.9% 50 ML SDV FLUSH ONE (23:54)
[2024-07-01] MEDS ORDERED: Acetaminophen/HYDROcodone 325-5 MG Tab ONE (00:12)
[2024-07-01] MEDS: Acetaminophen/HYDROcodone 325-5 MG Tab PO ONE (00:20)
== END 2024-07-01 00:25 | disposition home or self-care (01) ==
LOC: LB.ED 21:55
DX: N80.9 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, unspecified (principal); R10.2 Pelvic and perineal pain; E66.9 Obesity, unspecified; Z88.2 Allergy status to sulfonamides; Z88.8 Allergy status to other drugs, medicaments and biological substances; Z79.899 Other long term (current) drug therapy; Z90.49 Acquired absence of other specified parts of digestive tract; Z68.33 Body mass index [BMI] 33.0-33.9, adult
CPT/HCPCS: 36415; 74177; 80053; 81003; 81025; 85027; 86140; 96372; 96374; 99284; A9270; J1885; J2270; J3490; Q9967

== ENCOUNTER 2024-07-09 21:12 | Emergency (ER) | payer MEDICAID ==
[2024-07-09 21:58] LABS: APPEARANCE,URINE CLEAR (CLEAR); BILIRUBIN,URINE NEGATIVE (NEGATIVE); COLOR,URINE YELLOW; GLUCOSE,URINE NEGATIVE (NEGATIVE); KETONES,URINE NEGATIVE (NEGATIVE); LEUKOCYTE ESTERASE,URINE SMALL (NEGATIVE); OCCULT BLOOD,URINE NEGATIVE (NEGATIVE); PROTEIN,URINE NEGATIVE (NEGATIVE)
[2024-07-09 21:59] LABS: NITRITE,URINE NEGATIVE (NEGATIVE); UROBILINOGEN,URINE 0.2 E.U./dL (0.2-1.0)
[2024-07-09] MEDS: Ketorolac 30 MG/ML SDV IM ONE (22:13)
== END 2024-07-10 00:10 | disposition home or self-care (01) ==
LOC: LB.ED 21:12
DX: S00.33XA Contusion of nose, initial encounter (principal); S00.12XA Contusion of left eyelid and periocular area, initial encounter; S00.11XA Contusion of right eyelid and periocular area, initial encounter; S20.20XA Contusion of thorax, unspecified, initial encounter; S40.021A Contusion of right upper arm, initial encounter; E66.9 Obesity, unspecified; Z90.49 Acquired absence of other specified parts of digestive tract; Z90.6 Acquired absence of other parts of urinary tract; Z88.2 Allergy status to sulfonamides; Z88.8 Allergy status to other drugs, medicaments and biological substances; Z79.899 Other long term (current) drug therapy; Z68.34 Body mass index [BMI] 34.0-34.9, adult; W50.0XXA Accidental hit or strike by another person, initial encounter
CPT/HCPCS: 70486; 71250; 74150; 81003; 81025; 96372; 99284; J1885

== ENCOUNTER 2024-09-06 22:39 | Emergency (ER) | payer MEDICAID ==
[2024-09-06] MEDS: Ketorolac 30 MG/ML SDV IVPUSH ONE (22:56)
[2024-09-06] MEDS ORDERED: Naloxone 2 MG/2 ML Syringe IVPUSH PRN (23:09)
[2024-09-06] MEDS: HYDROmorphone 1 MG/ML Syringe IVPUSH ONE (23:13)
[2024-09-06] MEDS ORDERED: Acetaminophen/HYDROcodone 325-5 MG Tab ONE (23:45)
[2024-09-06 23:47] LABS: APPEARANCE,URINE SLIGHTLY CLOUDY (CLEAR); COLOR,URINE YELLOW
[2024-09-06 23:48] LABS: BILIRUBIN,URINE NEGATIVE (NEGATIVE); GLUCOSE,URINE NEGATIVE (NEGATIVE); KETONES,URINE NEGATIVE (NEGATIVE); LEUKOCYTE ESTERASE,URINE NEGATIVE (NEGATIVE); NITRITE,URINE NEGATIVE (NEGATIVE); OCCULT BLOOD,URINE NEGATIVE (NEGATIVE); PROTEIN,URINE NEGATIVE (NEGATIVE); RBC,URINE NOT SEEN /HPF; SQUAMOUS EPITHELIAL CELLS,UR MODERATE /HPF; UROBILINOGEN,URINE 0.2 E.U./dL (0.2-1.0)
[2024-09-06 23:49] LABS: BACTERIA,URINE OCCASIONAL /HPF
== END 2024-09-07 00:03 | disposition home or self-care (01) ==
LOC: LB.ED 22:39
DX: N80.9 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, unspecified (principal); E66.9 Obesity, unspecified; F17.210 Nicotine dependence, cigarettes, uncomplicated; Z90.49 Acquired absence of other specified parts of digestive tract; Z79.899 Other long term (current) drug therapy; Z88.2 Allergy status to sulfonamides; Z68.36 Body mass index [BMI] 36.0-36.9, adult
CPT/HCPCS: 81001; 96374; 96375; 96376; 99284; A9270; J1171; J1885

== ENCOUNTER 2024-11-02 21:36 | Emergency (ER) | payer MEDICAID ==
[2024-11-02 22:16] LABS: BASOPHILS ABSOLUTE AUTO 0.02 K/uL (0.02-0.10); BASOPHILS PERCENT AUTO 0.2 % (0.0-0.5); HEMOGLOBIN 13.1 g/dL (11.5-16.5); LYMPHOCYTES ABSOLUTE AUTO 3.62 K/uL (1.50-4.00); LYMPHOCYTES PERCENT AUTO 35.5 % (20.0-40.0); MEAN CORPUSCULAR HEMOGLOBIN 30.1 pg (27.0-32.0); MEAN CORPUSCULAR HGB CONC 33.6 g/dL (31.0-35.0); MEAN CORPUSCULAR VOLUME 90 fL (76-96); MEAN PLATELET VOLUME 9.7 fL (6.0-10.0); MONOCYTES PERCENT AUTO 6.9 % (3.0-10.0); NEUTROPHILS ABSOLUTE AUTO 5.75 K/uL (2.00-7.50); NEUTROPHILS PERCENT AUTO 56.4 % (45.0-70.0); PLATELET COUNT,PLT 285 K/uL (150-500); RED BLOOD CELL COUNT 4.35 M/uL (3.80-5.80); RED CELL DISTRIBUTION WIDTH 13.7 % (11.0-16.0); WHITE BLOOD CELL COUNT,WBC 10.2 K/uL (4.0-11.0)
[2024-11-02] MEDS: HYDROmorphone 1 MG/ML Syringe IM ONE (22:16)
[2024-11-02 22:18] LABS: APPEARANCE,URINE TURBID (CLEAR); COLOR,URINE YELLOW; PH,URINE 5.5 (5.0-8.0)
[2024-11-02 22:19] LABS: BILIRUBIN,URINE NEGATIVE (NEGATIVE); GLUCOSE,URINE NEGATIVE (NEGATIVE); KETONES,URINE NEGATIVE (NEGATIVE); LEUKOCYTE ESTERASE,URINE NEGATIVE (NEGATIVE); NITRITE,URINE NEGATIVE (NEGATIVE); OCCULT BLOOD,URINE NEGATIVE (NEGATIVE); PROTEIN,URINE NEGATIVE (NEGATIVE); UROBILINOGEN,URINE 0.2 E.U./dL (0.2-1.0)
[2024-11-02] MEDS ORDERED: Acetaminophen/HYDROcodone 325-5 MG Tab ONE (22:30)
[2024-11-02 22:34] LABS: A/G RATIO 1.1 (0.8-2.0); ALBUMIN 3.4 g/dL (3.4-5.0); ANION GAP 10.6 mmol/L (5.0-15.0); BILIRUBIN TOTAL 0.5 mg/dL (0.0-1.0); BUN/CREATININE RATIO 14.7 (6-25); CALCIUM 8.8 mg/dL (8.5-10.1); CREATININE 0.95 mg/dL (0.55-1.02); EST CRCL DRUG DOSING (CG) 85.76 mL/min; POTASSIUM,K 3.6 mmol/L (3.5-5.1); PROTEIN TOTAL,TP 6.4 g/dL (6.4-8.2)
[2024-11-04] MEDS: HYDROmorphone 1 MG/ML Syringe ONE (12:55)
== END 2024-11-02 22:50 | disposition home or self-care (01) ==
LOC: LB.ED 21:36
DX: N80.352 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 of the left pelvic sidewall, unspecified depth (principal)
CPT/HCPCS: 36415; 80053; 81003; 83690; 85025; 96372; 99284; A9270-GY; J1171

== ENCOUNTER 2025-01-29 08:58 | Emergency (ER) | payer MEDICAID ==
[2025-01-29] MEDS ORDERED: Sodium Chloride 0.9% 10 ML Syringe FLUSH PRN (09:57)
[2025-01-29] MEDS: Ondansetron 4 MG/2 ML SDV IVPUSH ONE (10:10)
[2025-01-29] MEDS: Ketorolac 15 MG/ML SDV IVPUSH ONE (10:14)
[2025-01-29 10:15] LABS: BASOPHILS ABSOLUTE AUTO 0.03 K/uL (0.02-0.10); BASOPHILS PERCENT AUTO 0.4 % (0.0-0.5); EOSINOPHILS ABSOLUTE AUTO 0.10 K/uL (0.04-0.40); EOSINOPHILS PERCENT AUTO 1.3 % (1.0-5.0); LYMPHOCYTES ABSOLUTE AUTO 2.45 K/uL (1.50-4.00); LYMPHOCYTES PERCENT AUTO 31.9 % (20.0-40.0); MEAN PLATELET VOLUME 10.3 fL (6.0-10.0); MONOCYTES ABSOLUTE AUTO 0.62 K/uL (0.20-0.80); MONOCYTES PERCENT AUTO 8.1 % (3.0-10.0); NEUTROPHILS ABSOLUTE AUTO 4.47 K/uL (2.00-7.50); NEUTROPHILS PERCENT AUTO 58.3 % (45.0-70.0); PLATELET COUNT,PLT 271 K/uL (150-500); RED BLOOD CELL COUNT 4.49 M/uL (3.80-5.80); RED CELL DISTRIBUTION WIDTH 13.4 % (11.0-16.0); WHITE BLOOD CELL COUNT,WBC 7.7 K/uL (4.0-11.0)
[2025-01-29 10:32] LABS: BLOOD UREA NITROGEN,BUN 12.0 mg/dL (8-26); CARBON DIOXIDE,CO2 27.7 mmol/L (21.0-32.0); CHLORIDE,CL 107.0 mmol/L (98-107); CREATININE 0.81 mg/dL (0.55-1.02); EST CRCL DRUG DOSING (CG) 99.65 mL/min; ESTIMATED GFR 98.0 mL/min (>60); GLUCOSE RANDOM 100.0 mg/dL (74-100); POTASSIUM,K 4.3 mmol/L (3.5-5.1); SODIUM,NA 143.0 mmol/L (136-145)
[2025-01-29] MEDS: Sodium Phosphate,Monobasic/Sodium Phosphate,Dibasic Enema 133 ML Bottle RECTAL ONE (11:36)
== END 2025-01-29 12:37 | disposition home or self-care (01) ==
LOC: LB.ED 08:58
DX: K59.89 Other specified functional intestinal disorders (principal); E66.9 Obesity, unspecified; F17.210 Nicotine dependence, cigarettes, uncomplicated; Z79.899 Other long term (current) drug therapy; Z88.8 Allergy status to other drugs, medicaments and biological substances; Z88.2 Allergy status to sulfonamides; Z68.38 Body mass index [BMI] 38.0-38.9, adult
CPT/HCPCS: 36415; 74019; 80048; 85025; 96374; 96375; 96376; 99284-25; A9270-GY; J1885; J2270; J2405

== ENCOUNTER 2025-06-25 17:07 | Emergency (ER) | payer MEDICAID ==
[2025-06-25 17:46] LABS: CORONAVIRUS COVID-19 NAA POSITIVE (NEGATIVE); INFLUENZA A NAA NEGATIVE (NEGATIVE); INFLUENZA B NAA NEGATIVE (NEGATIVE)
[2025-06-25] MEDS: Ketorolac 30 MG/ML SDV IM ONE (17:59)
== END 2025-06-25 18:08 | disposition home or self-care (01) ==
LOC: LB.ED 17:07
DX: U07.1 COVID-19 (principal); J20.8 Acute bronchitis due to other specified organisms; F17.200 Nicotine dependence, unspecified, uncomplicated; Z88.2 Allergy status to sulfonamides; Z91.048 Other nonmedicinal substance allergy status; Z79.899 Other long term (current) drug therapy; Z86.16 Personal history of COVID-19
CPT/HCPCS: 87636; 96372; 99283; J1885